=== PATIENT | male | born 1940 | race Caucasian/White ===

== ENCOUNTER 2018-05-31 11:10 | Inpatient (IN) | payer MEDICARE, BC ==
[~2018-05-31] VITALS: Ht 175.3 cm; Wt 77.8 kg
[2018-05-31 11:40] LABS: BASOPHILS % (AUTO) 0.3 % (0-1); EOSINOPHILS % (AUTO) 0.2 % (0-6); HEMATOCRIT 50.7 % (42.0-52.0); HEMOGLOBIN 17.3 g/dl (14.0-17.9); LYMPHOCYTES # (AUTO) 0.9 X10'3 (1.1-4.8); LYMPHOCYTES % (AUTO) 8.9 % (21-51); MEAN CORPUSCULAR HEMOGLOBIN 29.4 PG (27.0-31.0); MEAN CORPUSCULAR HGB CONC 34.1 % (33.0-36.5); MEAN CORPUSCULAR VOLUME 86.4 FL (78-98); MEAN PLATELET VOLUME 8.2 FL (7.4-10.4); MONOCYTES # (AUTO) 0.8 X10'3 (0-0.9); MONOCYTES % (AUTO) 8.7 % (2-12); NEUTROPHILS # (AUTO) 7.9 X10'3 (1.8-7.7); NEUTROPHILS % (AUTO) 81.9 % (42-75); PLATELET COUNT 170 X10'3 (140-440); RED BLOOD COUNT 5.87 X10'6 (4.70-6.10); RED CELL DISTRIBUTION WIDTH 13.9 % (11.5-14.5); WHITE BLOOD COUNT 9.6 X10'3 (4.5-11.0)
[2018-05-31 11:52] LABS: PROTHROMBIN TIME 10.6 SECONDS (9.0-12.0)
[2018-05-31 11:53] LABS: PARTIAL THROMBOPLASTIN TIME 31 SECONDS (22-32)
[2018-05-31 11:55] LABS: ALANINE AMINOTRANSFERASE 17 U/L (12-78); ALBUMIN 3.7 G/DL (3.4-5.0); ALBUMIN/GLOBULIN RATIO 0.9 (1.1-1.5); ALKALINE PHOSPHATASE 109 IU/L (46-116); ANION GAP 12 (8-16); ASPARTATE AMINO TRANSFERASE 13 U/L (10-37); BLOOD UREA NITROGEN 17 MG/DL (7-18); BUN/CREATININE RATIO 16.8 (5.4-32.0); CALCIUM 8.7 MG/DL (8.5-10.1); CHLORIDE 102 MMOL/L (99-107); CREATININE 1.01 MG/DL (0.60-1.10); GLUCOSE 106 MG/DL (70-104); POTASSIUM 3.6 MMOL/L (3.5-5.1); SODIUM 138 MMOL/L (135-145); TOTAL CARBON DIOXIDE 24.1 MMOL/L (24-32); TOTAL PROTEIN 7.8 G/DL (6.4-8.2); eGFR 71 ML/MIN
--- NOTE | 2018-05-31 12:29 | NUR ---
SOC CALLED FOR NEURO EVAL. CART IN ROOM
[2018-05-31 13:00] LABS: CLARITY,URINE SLIGHTLY CLOUDY (Clear); COLOR,URINE YELLOW (Yellow); GLUCOSE, URINE NEGATIVE (Neg); KETONES,URINE TRACE mg/dl (Neg); LEUKOCYTE ESTERASE ,URINE NEGATIVE (Neg); NITRITES, URINE NEGATIVE (Neg); OCCULT BLOOD,URINE LARGE (Neg); PROTEIN,URINE 30 mg/dl (Neg); UROBILINOGEN,URINE 0.2 E.U/dL (0.2-1.0)
[2018-05-31 13:01] LABS: UA COLLECTION TYPE VOIDED
--- NOTE | 2018-05-31 13:05 | NUR ---
ASSISTED SOC MD WITH NEURO ASSESSMENT AND EVAL
[2018-05-31 13:08] LABS: MUCUS STRANDS MODERATE /LPF (Neg); SQUAMOUS EPITHELIAL CELL,UR MODERATE /LPF (FEW)
[2018-05-31 13:16] LABS: CAL OXALATE CRYSTALS 4+ /HPF (NEGATIVE)
[2018-05-31 13:19] LABS: AMORPHOUS URATES 1+; BACTERIA,URINE FEW /HPF (Neg)
[2018-05-31] MEDS ORDERED: aspirin 325mg tablet PO ONE (13:20)
[2018-05-31] MEDS ORDERED: CefTRIAXone/D5W-Rocephin 1gm 50 ML IV ONE (14:00)
[2018-05-31] MEDS ORDERED: LOVA40TA2 PO (14:43)
[2018-05-31] MEDS ORDERED: SERT100T10 PO (14:43)
[2018-05-31] MEDS ORDERED: ONDA4TAB6 PO (14:43)
[2018-05-31] MEDS ORDERED: normal saline 1000ml 1,000 ML IV SCH ×2 (15:29→15:34)
[2018-05-31] MEDS ORDERED: HYDROcodone/acetaminophen 5mg/325mg tablet PO PRN ×2 (15:30→15:35)
[2018-05-31] MEDS ORDERED: magnesium hydroxide 30ml (MOM) UD suspension PO PRN ×2 (15:30→15:35)
[2018-05-31] MEDS ORDERED: acetaminophen 325mg tablet PO PRN ×4 (15:30→15:35)
[2018-05-31] MEDS ORDERED: ondansetron/PF 4mg/2ml inj IV PRN ×2 (15:30→15:35)
[2018-05-31] MEDS ORDERED: mag hydrox/Alum hydrox/simeth 30ml oral suspension PO PRN ×2 (15:30→15:35)
[2018-05-31] MEDS ORDERED: morphine 4 MG/ML inj SYRINge IV PRN (15:35)
[2018-05-31] MEDS ORDERED: magnesium 2GM in 50ml NS 50 ML IV PRN (15:35)
[2018-05-31] MEDS ORDERED: magnesium 4gm in 100ml NS 100 ML IV PRN (15:35)
[2018-05-31] MEDS ORDERED: potassium Cl 40MEQ/NS 500ml 500 ML IV PRN ×2 (15:35)
[2018-05-31] MEDS ORDERED: magnesium Cl slow-release 64mg tablet PO PRN (15:35)
[2018-05-31] MEDS ORDERED: potassium Cl 20 mEq SR tablet PO PRN ×2 (15:35)
[2018-05-31] MEDS ORDERED: lisinopril 10 MG tablet PO SCH (15:40)
--- NOTE | 2018-05-31 16:14 | NUR ---
CALLED TO GIVE REPORT RN JUST WENT IN TO A ROOM AND WILL CALL BACK SHORTLY
[2018-05-31 18:00] VITALS: BP 154/74
--- NOTE | 2018-05-31 18:16 | NUR ---
PAGER ID: [phone] MESSAGE: Jessica Melgar in [id number]- MRI looks inconclusive, states infarct present on rt but also states diffusion images neg for stroke. There are no parameters to give lisinopril (permissive htn x 24 hrs?) pls call me thank you Addendum: 05/31/18 at 1824 by Jazmín Torre RN per MD mooney to hold lisinopril at this time
--- NOTE | 2018-05-31 18:40 | NUR ---
PATIENT REPORT RECEIVED FROM CECY SCHWARTZ.
[2018-05-31] MEDS: heparin, porcine 5000 units/ml vial SQ SCH (19:14)
[2018-05-31 20:00] VITALS: BP_SYST 125; BP_SYST 145; BP_SYST 152; BP_DIAS 77; BP_DIAS 84; BP_DIAS 85
[2018-05-31 20:44] VITALS: BP 154/74
[2018-05-31] MEDS ORDERED: temazepam 15mg capsule PO PRN (21:00)
[2018-05-31 22:00] VITALS: BP 131/74
[2018-06-01] MEDS: heparin, porcine 5000 units/ml vial SQ SCH ×2 (01:35→10:25)
[2018-06-01 02:00] VITALS: BP 125/77
[2018-06-01 06:00] VITALS: BP 132/68
--- NOTE | 2018-06-01 06:36 | NUR ---
PATIENT REPORT GIVEN TO CECY SCHWARTZ.
[2018-06-01 07:15] LABS: BASOPHILS % (AUTO) 0.2 % (0-1); EOSINOPHILS # (AUTO) 0.1 X10'3 (0-0.9); EOSINOPHILS % (AUTO) 1.6 % (0-6); HEMATOCRIT 48.1 % (42.0-52.0); HEMOGLOBIN 16.8 g/dl (14.0-17.9); LYMPHOCYTES % (AUTO) 10.8 % (21-51); MEAN CORPUSCULAR HEMOGLOBIN 29.7 PG (27.0-31.0); MEAN CORPUSCULAR HGB CONC 34.9 % (33.0-36.5); MEAN CORPUSCULAR VOLUME 85.1 FL (78-98); MEAN PLATELET VOLUME 8.5 FL (7.4-10.4); MONOCYTES % (AUTO) 11.3 % (2-12); NEUTROPHILS % (AUTO) 76.1 % (42-75); PLATELET COUNT 164 X10'3 (140-440); RED BLOOD COUNT 5.65 X10'6 (4.70-6.10); RED CELL DISTRIBUTION WIDTH 13.9 % (11.5-14.5); WHITE BLOOD COUNT 9.1 X10'3 (4.5-11.0)
[2018-06-01 07:35] LABS: ALBUMIN 3.2 G/DL (3.4-5.0); ANION GAP 14 (8-16); BLOOD UREA NITROGEN 15 MG/DL (7-18); BUN/CREATININE RATIO 15.5 (5.4-32.0); CALCIUM 8.6 MG/DL (8.5-10.1); CHLORIDE 102 MMOL/L (99-107); CHOL/HDL RATIO 4.1 (0.00-4.99); CHOLESTEROL 156 MG/DL (0-200); CREATININE 0.97 MG/DL (0.60-1.10); GLUCOSE 103 MG/DL (70-104); HDL CHOLESTEROL 38 MG/DL (35-60); LDL CHOLESTEROL 108 MG/DL (50-100); MAGNESIUM 1.7 MG/DL (1.5-2.4); POTASSIUM 3.5 MMOL/L (3.5-5.1); SODIUM 140 MMOL/L (135-145); TOTAL CARBON DIOXIDE 23.6 MMOL/L (24-32); TRIGLYCERIDES 94 MG/DL (20-135); eGFR 75 ML/MIN
[2018-06-01] MEDS ORDERED: atorvastatin 10mg tablet PO SCH (08:00)
[2018-06-01] MEDS ORDERED: lisinopril 10 MG tablet PO SCH (08:00)
[2018-06-01] MEDS ORDERED: sertraline 50mg tablet PO SCH (08:00)
[2018-06-01] MEDS ORDERED: K and/or MAG REPLACEMENT MC SCH (08:00)
[2018-06-01] MEDS ORDERED: CefTRIAXone/D5W-Rocephin 1gm 50 ML IV SCH (08:35)
[2018-06-01] MEDS ORDERED: carVEDilol 3.125mg tablet PO SCH (08:35)
[2018-06-01 10:00] VITALS: BP_SYST 132; BP_SYST 141; BP_SYST 145; BP_DIAS 66; BP_DIAS 68; BP_DIAS 76
--- NOTE | 2018-06-01 13:18 | NUR ---
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 Discussed with Yadira the stroke RN and she agrees
--- NOTE | 2018-06-01 14:25 | NUR ---
PAGER ID: [phone] MESSAGE: Jessica [phone] re Mr Wade escudero in [id number]- His workup looks negative, family at bedside wondering about dc. Thank you
[2018-06-01] MEDS ORDERED: COR3.125T PO (14:46)
[2018-06-01] MEDS ORDERED: CIPR-230 PO (14:46)
--- NOTE | 2018-06-01 15:32 | NUR ---
PAGER ID: [phone] MESSAGE: Jessica [phone] re Wade Melgar in 3419w- Does he need home rx for asa? because of the prior stroke?
[2018-06-01] MEDS ORDERED: ASPI-1264 PO (16:23)
--- NOTE | 2018-06-01 16:31 | NUR ---
rx called in to [facility] [address]
[2018-06-01] MEDS ORDERED: lactobacillus rhamnosus 10,000 MMU CELLS/CAPSULE PO SCH (20:00)
== END 2018-06-01 17:00 | disposition home or self-care (01) | DRG 640 ==
LOC: ER 11:11 → ED HOLD 15:29 → ORTHO 4S 17:26
PROVIDERS: ADMIT Internal Medicine; ATTEND Internal Medicine
DX: E86.0 Dehydration (principal); G93.41 Metabolic encephalopathy; N39.0 Urinary tract infection, site not specified; E78.00 Pure hypercholesterolemia, unspecified; R79.89 Other specified abnormal findings of blood chemistry; E78.5 Hyperlipidemia, unspecified; F32.9 Major depressive disorder, single episode, unspecified; I10 Essential (primary) hypertension; Z79.899 Other long term (current) drug therapy
CPT/HCPCS: 36415; 70450; 70551; 71045; 80048; 80053; 80061; 81001; 83735; 84484; 85025; 85610; 85730; 87070; 87088; 93005; 93306; 93880; 96365; 97116; 97162; 97530; 99285; G0378; J0696; J1644

== ENCOUNTER 2019-05-21 08:48 | Emergency (ER) | payer MEDICARE, BC ==
[~2019-05-21] VITALS: Ht 170.2 cm; Wt 84.0 kg
[~2019-05-21 08:48] MED LIST: ASPI-1264 PO; COR3.125T PO; LOVA40TA2 PO; ONDA4TAB6 PO; SERT100T10 PO
--- NOTE | 2019-05-21 09:10 | NUR ---
[facility] card given to me by EMS for transport home when needed. Patient is in rm 205, Contact Bjorn Grijalva at [phone].
[2019-05-21 09:46] LABS: BASOPHILS # (AUTO) 0.1 X10'3 (0-0.2); BASOPHILS % (AUTO) 0.6 % (0-1); EOSINOPHILS # (AUTO) 0.3 X10'3 (0-0.9); EOSINOPHILS % (AUTO) 2.9 % (0-6); HEMOGLOBIN 16.6 g/dl (14.0-17.9); LYMPHOCYTES # (AUTO) 1.3 X10'3 (1.1-4.8); LYMPHOCYTES % (AUTO) 14.8 % (21-51); MEAN CORPUSCULAR HEMOGLOBIN 28.4 PG (27.0-31.0); MEAN CORPUSCULAR HGB CONC 33.8 g/dL (33.0-36.5); MEAN PLATELET VOLUME 8.6 FL (7.4-10.4); MONOCYTES # (AUTO) 0.9 X10'3 (0-0.9); MONOCYTES % (AUTO) 9.9 % (2-12); NEUTROPHILS # (AUTO) 6.5 X10'3 (1.8-7.7); NEUTROPHILS % (AUTO) 71.8 % (42-75); PLATELET COUNT 200 X10'3 (140-440); RED BLOOD COUNT 5.84 X10'6 (4.70-6.10); RED CELL DISTRIBUTION WIDTH 14.8 % (11.5-14.5); WHITE BLOOD COUNT 9.1 X10'3 (4.5-11.0)
[2019-05-21 09:54] LABS: CLARITY,URINE SLIGHTLY CLOUDY (Clear); COLOR,URINE YELLOW (Yellow); GLUCOSE, URINE NEGATIVE (Neg); KETONES,URINE NEGATIVE (Neg); LEUKOCYTE ESTERASE ,URINE NEGATIVE (Neg); NITRITES, URINE NEGATIVE (Neg); OCCULT BLOOD,URINE TRACE-INTACT (Neg); PROTEIN,URINE 30 mg/dl (Neg); UROBILINOGEN,URINE 0.2 E.U/dL (0.2-1.0)
[2019-05-21 09:57] LABS: UA COLLECTION TYPE URINAL
[2019-05-21 10:00] LABS: PARTIAL THROMBOPLASTIN TIME 28 SECONDS (22-32)
[2019-05-21 10:02] LABS: CAL OXALATE CRYSTALS 2+ /HPF (NEGATIVE); MUCUS STRANDS FEW /LPF (Neg); SQUAMOUS EPITHELIAL CELL,UR FEW /LPF (FEW)
[2019-05-21 10:03] LABS: ALANINE AMINOTRANSFERASE 29 U/L (12-78); ALBUMIN 3.6 G/DL (3.4-5.0); ALBUMIN/GLOBULIN RATIO 0.8 (1.1-1.5); ALKALINE PHOSPHATASE 127 IU/L (46-116); ANION GAP 5 (8-16); ASPARTATE AMINO TRANSFERASE 22 U/L (10-37); BILIRUBIN,TOTAL 0.6 MG/DL (0.1-1.0); BLOOD UREA NITROGEN 18 MG/DL (7-18); BUN/CREATININE RATIO 19.1 (5.4-32.0); CHLORIDE 107 MMOL/L (99-107); CREATININE 0.94 MG/DL (0.60-1.10); GLUCOSE 96 MG/DL (70-104); POTASSIUM 3.6 MMOL/L (3.5-5.1); SODIUM 143 MMOL/L (135-145); TOTAL CARBON DIOXIDE 30.6 MMOL/L (24-32); TOTAL PROTEIN 7.9 G/DL (6.4-8.2); eGFR 77 ML/MIN
[2019-05-21 10:03] LABS: BACTERIA,URINE 1+ /HPF (Neg); RBC,URINE 0-2 /HPF (0-2); WBC,URINE 0-4 /HPF (0-4)
[2019-05-21 10:11] LABS: MAGNESIUM 2.2 MG/DL (1.5-2.4); TROPONIN I < 0.04 NG/ML (0.0-0.05)
[2019-05-21] MEDS ORDERED: CEPH500C5 PO (10:29)
--- NOTE | 2019-05-21 10:35 | NUR ---
CALL MADE TO [facility] [phone] THEY WILL CALL FAMILY TO COME SUPERVISOR SEWING DEPARTMENT PT.
[2019-05-21 11:11] VITALS: BP 157/73
== END 2019-05-21 11:14 | disposition home or self-care (01) ==
LOC: ER 08:49
DX: L03.116 Cellulitis of left lower limb (principal); L03.115 Cellulitis of right lower limb; F03.90 Unspecified dementia, unspecified severity, without behavioral disturbance, psychotic disturbance, mood disturbance, and anxiety; R79.1 Abnormal coagulation profile; E78.00 Pure hypercholesterolemia, unspecified; Z79.82 Long term (current) use of aspirin; Z79.899 Other long term (current) drug therapy
CPT/HCPCS: 36415; 71045; 80053; 81001; 83605; 83735; 83880; 84145; 84484; 85025; 85610; 85730; 87040; 93005; 99284

== ENCOUNTER 2019-09-05 11:26 | Emergency (ER) | payer MEDICARE, BC ==
[~2019-09-05] VITALS: Ht 177.8 cm; Wt 104.5 kg
[~2019-09-05 11:26] MED LIST changes: +CEPH500C5 PO
[2019-09-05 12:08] LABS: BASOPHILS # (AUTO) 0.1 X10'3 (0-0.2); BASOPHILS % (AUTO) 0.7 % (0-1); EOSINOPHILS # (AUTO) 0.4 X10'3 (0-0.9); HEMOGLOBIN 14.7 g/dl (14.0-17.9); LYMPHOCYTES # (AUTO) 1.2 X10'3 (1.1-4.8); LYMPHOCYTES % (AUTO) 9.4 % (21-51); MEAN CORPUSCULAR HGB CONC 32.6 g/dL (33.0-36.5); MEAN CORPUSCULAR VOLUME 82.9 FL (78-98); MONOCYTES # (AUTO) 1.2 X10'3 (0-0.9); MONOCYTES % (AUTO) 9.4 % (2-12); NEUTROPHILS # (AUTO) 9.8 X10'3 (1.8-7.7); NEUTROPHILS % (AUTO) 77.5 % (42-75); PLATELET COUNT 270 X10'3 (140-440); RED BLOOD COUNT 5.43 X10'6 (4.70-6.10); RED CELL DISTRIBUTION WIDTH 16.1 % (11.5-14.5); WHITE BLOOD COUNT 12.7 X10'3 (4.5-11.0)
[2019-09-05 12:26] LABS: ALANINE AMINOTRANSFERASE 18 U/L (12-78); ALBUMIN/GLOBULIN RATIO 0.6 (1.1-1.5); ALKALINE PHOSPHATASE 127 IU/L (46-116); ANION GAP 5 (8-16); ASPARTATE AMINO TRANSFERASE 20 U/L (10-37); BILIRUBIN,TOTAL 0.2 MG/DL (0.1-1.0); BLOOD UREA NITROGEN 12 MG/DL (7-18); BUN/CREATININE RATIO 9.4 (5.4-32.0); CALCIUM 8.9 MG/DL (8.5-10.1); CHLORIDE 104 MMOL/L (99-107); CREATININE 1.27 MG/DL (0.60-1.10); GLUCOSE 106 MG/DL (70-104); POTASSIUM 4.4 MMOL/L (3.5-5.1); SODIUM 140 MMOL/L (135-145); TOTAL CARBON DIOXIDE 31.1 MMOL/L (24-32); TOTAL PROTEIN 7.8 G/DL (6.4-8.2); eGFR 55 ML/MIN
--- NOTE | 2019-09-05 13:51 | NUR ---
pt sleeping in no distress.
--- NOTE | 2019-09-05 15:52 | NUR ---
patients POA named Jorge is going to pick this patient up and take him back to the facility he came from. Patient awaiting ride and has discharge orders.
--- NOTE | 2019-09-05 15:55 | NUR ---
Jorge called back and said that Rosi the caregiver would be picking the patient up in about 15 minutes
[2019-09-05 16:27] VITALS: BP 142/61
== END 2019-09-05 16:25 | disposition home or self-care (01) ==
LOC: ER 11:26
DX: R07.9 Chest pain, unspecified (principal); R06.02 Shortness of breath; E78.00 Pure hypercholesterolemia, unspecified; Z79.82 Long term (current) use of aspirin; Z79.2 Long term (current) use of antibiotics; Z79.899 Other long term (current) drug therapy
CPT/HCPCS: 36415; 71045; 80053; 84484; 85025; 93005; 99285

== ENCOUNTER 2019-10-23 10:55 | Outpatient (CLI) | payer MEDICARE, BC ==
[2019-10-23 13:02] LABS: BASOPHILS % (AUTO) 0.3 % (0-1); EOSINOPHILS # (AUTO) 0.4 X10'3 (0-0.9); EOSINOPHILS % (AUTO) 2.7 % (0-6); HEMATOCRIT 42.7 % (42.0-52.0); LYMPHOCYTES % (AUTO) 7.6 % (21-51); MEAN CORPUSCULAR HEMOGLOBIN 26.9 PG (27.0-31.0); MEAN CORPUSCULAR HGB CONC 32.8 g/dL (33.0-36.5); MEAN CORPUSCULAR VOLUME 82.1 FL (78-98); MEAN PLATELET VOLUME 8.2 FL (7.4-10.4); MONOCYTES # (AUTO) 1.2 X10'3 (0-0.9); MONOCYTES % (AUTO) 9.3 % (2-12); NEUTROPHILS # (AUTO) 10.3 X10'3 (1.8-7.7); NEUTROPHILS % (AUTO) 80.1 % (42-75); PLATELET COUNT 289 X10'3 (140-440); RED CELL DISTRIBUTION WIDTH 15.6 % (11.5-14.5); WHITE BLOOD COUNT 12.9 X10'3 (4.5-11.0)
[2019-10-23 13:25] LABS: HEMOGLOBIN A1C 5.9 % (4.5-6.2)
[2019-10-23 14:05] LABS: ALANINE AMINOTRANSFERASE 19 U/L (12-78); ALBUMIN/GLOBULIN RATIO 0.6 (1.1-1.5); ALKALINE PHOSPHATASE 121 IU/L (46-116); ANION GAP 7 (8-16); ASPARTATE AMINO TRANSFERASE 20 U/L (10-37); BILIRUBIN,TOTAL 0.3 MG/DL (0.1-1.0); BLOOD UREA NITROGEN 12 MG/DL (7-18); BUN/CREATININE RATIO 10.9 (5.4-32.0); CALCIUM 9.2 MG/DL (8.5-10.1); CHLORIDE 104 MMOL/L (99-107); GLUCOSE 91 MG/DL (70-104); POTASSIUM 4.2 MMOL/L (3.5-5.1); SODIUM 140 MMOL/L (135-145); TOTAL CARBON DIOXIDE 28.9 MMOL/L (24-32); TOTAL PROTEIN 8.2 G/DL (6.4-8.2); eGFR 64 ML/MIN
== END 2019-10-23 13:30 | disposition home or self-care (01) ==
LOC: WOUND CARE 10:55 → EDSTATUS 11:00 → WOUND CARE 13:30
PROVIDERS: ATTEND Nurse Practitioner
DX: I83.011 Varicose veins of right lower extremity with ulcer of thigh (principal); I83.012 Varicose veins of right lower extremity with ulcer of calf; L97.111 Non-pressure chronic ulcer of right thigh limited to breakdown of skin; L97.211 Non-pressure chronic ulcer of right calf limited to breakdown of skin; I83.018 Varicose veins of right lower extremity with ulcer other part of lower leg; L97.811 Non-pressure chronic ulcer of other part of right lower leg limited to breakdown of skin; L97.821 Non-pressure chronic ulcer of other part of left lower leg limited to breakdown of skin; I83.028 Varicose veins of left lower extremity with ulcer other part of lower leg; I10 Essential (primary) hypertension; F03.90 Unspecified dementia, unspecified severity, without behavioral disturbance, psychotic disturbance, mood disturbance, and anxiety; Z79.2 Long term (current) use of antibiotics; Z79.899 Other long term (current) drug therapy; Z79.82 Long term (current) use of aspirin; E78.00 Pure hypercholesterolemia, unspecified; Z90.49 Acquired absence of other specified parts of digestive tract
CPT/HCPCS: 29580; 36415; 80053; 83036; 85025; 85651; 86140

== ENCOUNTER 2019-10-30 11:40 | Outpatient (CLI) | payer MEDICARE, BC | END 2019-10-30 14:24 | disposition home or self-care (01) | LOC: EDSTATUS 11:40 → WOUND CARE 11:40 | PROVIDERS: ATTEND Nurse Practitioner | DX: I83.012 Varicose veins of right lower extremity with ulcer of calf (principal); L97.211 Non-pressure chronic ulcer of right calf limited to breakdown of skin; L97.821 Non-pressure chronic ulcer of other part of left lower leg limited to breakdown of skin; L97.811 Non-pressure chronic ulcer of other part of right lower leg limited to breakdown of skin; I83.011 Varicose veins of right lower extremity with ulcer of thigh; L97.111 Non-pressure chronic ulcer of right thigh limited to breakdown of skin; I10 Essential (primary) hypertension; E78.00 Pure hypercholesterolemia, unspecified; F03.90 Unspecified dementia, unspecified severity, without behavioral disturbance, psychotic disturbance, mood disturbance, and anxiety; Z79.2 Long term (current) use of antibiotics; Z79.899 Other long term (current) drug therapy; Z79.82 Long term (current) use of aspirin; Z90.49 Acquired absence of other specified parts of digestive tract | CPT/HCPCS: 29581; 93922; 93925 ==

== ENCOUNTER 2019-11-05 10:40 | Outpatient (CLI) | payer MEDICARE, BC | END 2019-11-05 12:01 | disposition home or self-care (01) | LOC: WOUND CARE 10:40 → EDSTATUS 10:40 → WOUND CARE 12:01 | PROVIDERS: ATTEND Nurse Practitioner | DX: I83.012 Varicose veins of right lower extremity with ulcer of calf (principal); L97.211 Non-pressure chronic ulcer of right calf limited to breakdown of skin; L97.821 Non-pressure chronic ulcer of other part of left lower leg limited to breakdown of skin; L97.811 Non-pressure chronic ulcer of other part of right lower leg limited to breakdown of skin; I83.011 Varicose veins of right lower extremity with ulcer of thigh; L97.111 Non-pressure chronic ulcer of right thigh limited to breakdown of skin; I10 Essential (primary) hypertension; E78.00 Pure hypercholesterolemia, unspecified; F03.90 Unspecified dementia, unspecified severity, without behavioral disturbance, psychotic disturbance, mood disturbance, and anxiety; Z79.2 Long term (current) use of antibiotics; Z79.899 Other long term (current) drug therapy; Z79.82 Long term (current) use of aspirin; Z90.49 Acquired absence of other specified parts of digestive tract | CPT/HCPCS: G0463 ==

== ENCOUNTER 2019-11-11 10:14 | Outpatient (CLI) | payer MEDICARE, BC | END 2019-11-11 12:57 | disposition home or self-care (01) | LOC: WOUND CARE 10:14 → EDSTATUS 10:20 → WOUND CARE 12:57 | PROVIDERS: ATTEND Nurse Practitioner | DX: I83.012 Varicose veins of right lower extremity with ulcer of calf (principal); L97.211 Non-pressure chronic ulcer of right calf limited to breakdown of skin; L97.811 Non-pressure chronic ulcer of other part of right lower leg limited to breakdown of skin; L97.821 Non-pressure chronic ulcer of other part of left lower leg limited to breakdown of skin; I87.8 Other specified disorders of veins; I83.011 Varicose veins of right lower extremity with ulcer of thigh; L97.111 Non-pressure chronic ulcer of right thigh limited to breakdown of skin; I10 Essential (primary) hypertension; E78.00 Pure hypercholesterolemia, unspecified; F03.90 Unspecified dementia, unspecified severity, without behavioral disturbance, psychotic disturbance, mood disturbance, and anxiety; Z79.2 Long term (current) use of antibiotics; Z79.899 Other long term (current) drug therapy; Z79.82 Long term (current) use of aspirin; Z90.49 Acquired absence of other specified parts of digestive tract | CPT/HCPCS: 29580 ==

== ENCOUNTER 2019-11-18 10:17 | Outpatient (CLI) | payer MEDICARE, BC | END 2019-11-18 11:36 | disposition home or self-care (01) | LOC: WOUND CARE 10:17 → EDSTATUS 10:20 → WOUND CARE 11:36 | PROVIDERS: ATTEND Nurse Practitioner | DX: I83.012 Varicose veins of right lower extremity with ulcer of calf (principal); L97.211 Non-pressure chronic ulcer of right calf limited to breakdown of skin; I83.018 Varicose veins of right lower extremity with ulcer other part of lower leg; L97.811 Non-pressure chronic ulcer of other part of right lower leg limited to breakdown of skin; I83.028 Varicose veins of left lower extremity with ulcer other part of lower leg; L97.821 Non-pressure chronic ulcer of other part of left lower leg limited to breakdown of skin; I87.8 Other specified disorders of veins; I83.011 Varicose veins of right lower extremity with ulcer of thigh; L97.111 Non-pressure chronic ulcer of right thigh limited to breakdown of skin; I10 Essential (primary) hypertension; E78.00 Pure hypercholesterolemia, unspecified; F03.90 Unspecified dementia, unspecified severity, without behavioral disturbance, psychotic disturbance, mood disturbance, and anxiety; Z79.2 Long term (current) use of antibiotics; Z79.899 Other long term (current) drug therapy; Z79.82 Long term (current) use of aspirin; Z90.49 Acquired absence of other specified parts of digestive tract | CPT/HCPCS: 29581 ==

== ENCOUNTER 2019-12-02 10:12 | Outpatient (CLI) | payer MEDICARE, BC | END 2019-12-02 11:10 | disposition home or self-care (01) | LOC: WOUND CARE 10:12 → EDSTATUS 10:20 → WOUND CARE 11:10 | PROVIDERS: ATTEND Nurse Practitioner | DX: I83.012 Varicose veins of right lower extremity with ulcer of calf (principal); L97.211 Non-pressure chronic ulcer of right calf limited to breakdown of skin; I83.018 Varicose veins of right lower extremity with ulcer other part of lower leg; L97.811 Non-pressure chronic ulcer of other part of right lower leg limited to breakdown of skin; I83.028 Varicose veins of left lower extremity with ulcer other part of lower leg; L97.821 Non-pressure chronic ulcer of other part of left lower leg limited to breakdown of skin; I87.8 Other specified disorders of veins; I83.011 Varicose veins of right lower extremity with ulcer of thigh; L97.111 Non-pressure chronic ulcer of right thigh limited to breakdown of skin; I83.015 Varicose veins of right lower extremity with ulcer other part of foot; L89.899 Pressure ulcer of other site, unspecified stage; L97.511 Non-pressure chronic ulcer of other part of right foot limited to breakdown of skin; I10 Essential (primary) hypertension; E78.00 Pure hypercholesterolemia, unspecified; F03.90 Unspecified dementia, unspecified severity, without behavioral disturbance, psychotic disturbance, mood disturbance, and anxiety; Z79.2 Long term (current) use of antibiotics; Z79.899 Other long term (current) drug therapy; Z79.82 Long term (current) use of aspirin; Z90.49 Acquired absence of other specified parts of digestive tract | CPT/HCPCS: 29581 ==

== ENCOUNTER 2020-01-02 10:28 | Outpatient (CLI) | payer MEDICARE, BC | END 2020-01-02 11:55 | disposition home or self-care (01) | LOC: WOUND CARE 10:28 | PROVIDERS: ATTEND Nurse Practitioner | DX: I83.018 Varicose veins of right lower extremity with ulcer other part of lower leg (principal); L97.811 Non-pressure chronic ulcer of other part of right lower leg limited to breakdown of skin; I83.028 Varicose veins of left lower extremity with ulcer other part of lower leg; L97.821 Non-pressure chronic ulcer of other part of left lower leg limited to breakdown of skin; I83.012 Varicose veins of right lower extremity with ulcer of calf; L97.211 Non-pressure chronic ulcer of right calf limited to breakdown of skin; I87.8 Other specified disorders of veins; I83.011 Varicose veins of right lower extremity with ulcer of thigh; L97.111 Non-pressure chronic ulcer of right thigh limited to breakdown of skin; I10 Essential (primary) hypertension; E78.00 Pure hypercholesterolemia, unspecified; F03.90 Unspecified dementia, unspecified severity, without behavioral disturbance, psychotic disturbance, mood disturbance, and anxiety; Z79.2 Long term (current) use of antibiotics; Z79.899 Other long term (current) drug therapy; Z79.82 Long term (current) use of aspirin; Z90.49 Acquired absence of other specified parts of digestive tract; Z90.89 Acquired absence of other organs | CPT/HCPCS: 29580; 87070; 87075; 87077; 87102; 87186 ==

== ENCOUNTER 2020-01-09 10:25 | Outpatient (CLI) | payer MEDICARE, BC | END 2020-01-09 11:43 | disposition home or self-care (01) | LOC: WOUND CARE 10:25 | PROVIDERS: ATTEND Nurse Practitioner | DX: I83.018 Varicose veins of right lower extremity with ulcer other part of lower leg (principal); L97.811 Non-pressure chronic ulcer of other part of right lower leg limited to breakdown of skin; I83.028 Varicose veins of left lower extremity with ulcer other part of lower leg; L97.821 Non-pressure chronic ulcer of other part of left lower leg limited to breakdown of skin; I83.012 Varicose veins of right lower extremity with ulcer of calf; L97.211 Non-pressure chronic ulcer of right calf limited to breakdown of skin; I87.8 Other specified disorders of veins; I83.011 Varicose veins of right lower extremity with ulcer of thigh; L97.111 Non-pressure chronic ulcer of right thigh limited to breakdown of skin; I10 Essential (primary) hypertension; E78.00 Pure hypercholesterolemia, unspecified; F03.90 Unspecified dementia, unspecified severity, without behavioral disturbance, psychotic disturbance, mood disturbance, and anxiety; Z79.2 Long term (current) use of antibiotics; Z79.899 Other long term (current) drug therapy; Z79.82 Long term (current) use of aspirin; Z90.49 Acquired absence of other specified parts of digestive tract; Z90.89 Acquired absence of other organs | CPT/HCPCS: 29580 ==

== ENCOUNTER → 2020-01-16 | Day surgery (SDC) | payer MEDICARE, BC | END | disposition home or self-care (01) | LOC: WOUND CARE 10:30 | PROVIDERS: ATTEND Nurse Practitioner | DX: I83.018 Varicose veins of right lower extremity with ulcer other part of lower leg (principal); L97.211 Non-pressure chronic ulcer of right calf limited to breakdown of skin; I83.028 Varicose veins of left lower extremity with ulcer other part of lower leg; L97.821 Non-pressure chronic ulcer of other part of left lower leg limited to breakdown of skin; I83.012 Varicose veins of right lower extremity with ulcer of calf; L97.811 Non-pressure chronic ulcer of other part of right lower leg limited to breakdown of skin; I83.011 Varicose veins of right lower extremity with ulcer of thigh; L97.111 Non-pressure chronic ulcer of right thigh limited to breakdown of skin; I83.015 Varicose veins of right lower extremity with ulcer other part of foot; L89.899 Pressure ulcer of other site, unspecified stage; L97.511 Non-pressure chronic ulcer of other part of right foot limited to breakdown of skin; I10 Essential (primary) hypertension; E78.00 Pure hypercholesterolemia, unspecified; F03.90 Unspecified dementia, unspecified severity, without behavioral disturbance, psychotic disturbance, mood disturbance, and anxiety; Z79.2 Long term (current) use of antibiotics; Z79.899 Other long term (current) drug therapy; Z79.82 Long term (current) use of aspirin; Z90.49 Acquired absence of other specified parts of digestive tract | CPT/HCPCS: 29581 ==

== ENCOUNTER 2020-01-25 14:06 | Emergency (ER) | payer MEDICARE, BC ==
[2020-01-25 14:41] LABS: BASOPHILS # (AUTO) 0.3 X10'3 (0-0.2); BASOPHILS % (AUTO) 1.2 % (0-1); EOSINOPHILS % (AUTO) 0.1 % (0-6); HEMATOCRIT 40.6 % (42.0-52.0); HEMOGLOBIN 13.5 g/dl (14.0-17.9); LYMPHOCYTES # (AUTO) 0.5 X10'3 (1.1-4.8); LYMPHOCYTES % (AUTO) 2.4 % (21-51); MEAN CORPUSCULAR HEMOGLOBIN 27.1 PG (27.0-31.0); MEAN CORPUSCULAR HGB CONC 33.2 g/dL (33.0-36.5); MEAN CORPUSCULAR VOLUME 81.7 FL (78-98); MONOCYTES # (AUTO) 1.7 X10'3 (0-0.9); MONOCYTES % (AUTO) 7.8 % (2-12); NEUTROPHILS # (AUTO) 18.9 X10'3 (1.8-7.7); NEUTROPHILS % (AUTO) 88.5 % (42-75); PLATELET COUNT 196 X10'3 (140-440); RED BLOOD COUNT 4.97 X10'6 (4.70-6.10); RED CELL DISTRIBUTION WIDTH 15.8 % (11.5-14.5); WHITE BLOOD COUNT 21.4 X10'3 (4.5-11.0)
--- NOTE | 2020-01-25 14:45 | NUR ---
PT IN CT
[2020-01-25 14:52] LABS: PARTIAL THROMBOPLASTIN TIME 31 SECONDS (22-32)
[2020-01-25 14:53] LABS: ALANINE AMINOTRANSFERASE 22 U/L (12-78); ALBUMIN 2.8 G/DL (3.4-5.0); ALBUMIN/GLOBULIN RATIO 0.6 (1.1-1.5); ALKALINE PHOSPHATASE 120 IU/L (46-116); ANION GAP 8 (8-16); ASPARTATE AMINO TRANSFERASE 22 U/L (10-37); BILIRUBIN,TOTAL 0.9 MG/DL (0.1-1.0); BLOOD UREA NITROGEN 20 MG/DL (7-18); BUN/CREATININE RATIO 18.3 (5.4-32.0); CALCIUM 8.5 MG/DL (8.5-10.1); CHLORIDE 99 MMOL/L (99-107); CREATININE 1.09 MG/DL (0.60-1.10); GLUCOSE 112 MG/DL (70-104); POTASSIUM 3.7 MMOL/L (3.5-5.1); SODIUM 132 MMOL/L (135-145); TOTAL CARBON DIOXIDE 25.4 MMOL/L (24-32); TOTAL PROTEIN 7.8 G/DL (6.4-8.2); eGFR 65 ML/MIN
--- NOTE | 2020-01-25 15:09 | NUR ---
TRAUMA CLEARED CT RESULTED. CLEARED [id number]
[2020-01-25 15:10] VITALS: BP 133/63
[2020-01-25 15:21] LABS: CLARITY,URINE CLOUDY (Clear); COLOR,URINE YELLOW (Yellow); GLUCOSE, URINE NEGATIVE (Neg); KETONES,URINE TRACE mg/dl (Neg); LEUKOCYTE ESTERASE ,URINE MODERATE (Neg); NITRITES, URINE POSITIVE (Neg); OCCULT BLOOD,URINE LARGE (Neg); PH,URINE 5.5 (4.8-8.0); PROTEIN,URINE 100 mg/dl (Neg)
[2020-01-25 15:28] LABS: UA COLLECTION TYPE STRAIGHT CATH
[2020-01-25 15:29] LABS: BACTERIA,URINE 2+ /HPF (Neg); MUCUS STRANDS FEW /LPF (Neg); SQUAMOUS EPITHELIAL CELL,UR NONE SEEN /LPF (FEW); WBC,URINE 50-100 /HPF (0-4)
[2020-01-25] MEDS ORDERED: CefTRIAXone/D5W-Rocephin 1gm 50 ML IV ONE (15:30)
[2020-01-25] MEDS ORDERED: CEPH500C5 PO (16:04)
== END 2020-01-25 16:28 | disposition home or self-care (01) ==
LOC: ER 14:06
DX: S09.90XA Unspecified injury of head, initial encounter (principal); N39.0 Urinary tract infection, site not specified; F03.90 Unspecified dementia, unspecified severity, without behavioral disturbance, psychotic disturbance, mood disturbance, and anxiety; E78.00 Pure hypercholesterolemia, unspecified; Z79.82 Long term (current) use of aspirin; Z79.899 Other long term (current) drug therapy; W19.XXXA Unspecified fall, initial encounter; Y93.89 Activity, other specified; Y92.89 Other specified places as the place of occurrence of the external cause; Y99.8 Other external cause status
CPT/HCPCS: 36415; 70450; 71045; 72125; 80053; 81001; 83605; 85025; 85610; 85730; 87040; 87077; 87088; 87186; 93005; 96365; 99285; J0696

== ENCOUNTER 2020-09-28 10:24 | Emergency (ER) | payer MEDICARE, BC ==
[~2020-09-28] VITALS: Ht 170.2 cm; Wt 76.8 kg
[~2020-09-28 10:24] MED LIST changes: +CEPH-585 PO; -CEPH500C5 PO; +SERT-434 PO; -SERT100T10 PO
[2020-09-28] MEDS ORDERED: normal saline 1000ML IV soln IVB ONE (10:40)
[2020-09-28 11:09] LABS: BASOPHILS # (AUTO) 0.1 X10'3 (0-0.2); BASOPHILS % (AUTO) 0.6 % (0-1); EOSINOPHILS # (AUTO) 0.3 X10'3 (0-0.9); EOSINOPHILS % (AUTO) 3.1 % (0-6); HEMOGLOBIN 12.2 g/dl (14.0-17.9); LYMPHOCYTES # (AUTO) 0.8 X10'3 (1.1-4.8); LYMPHOCYTES % (AUTO) 9.8 % (21-51); MEAN CORPUSCULAR HEMOGLOBIN 23.4 PG (27.0-31.0); MEAN CORPUSCULAR HGB CONC 32.2 g/dL (33.0-36.5); MEAN CORPUSCULAR VOLUME 72.9 FL (78-98); MEAN PLATELET VOLUME 7.8 FL (7.4-10.4); MONOCYTES # (AUTO) 0.9 X10'3 (0-0.9); MONOCYTES % (AUTO) 10.5 % (2-12); NEUTROPHILS # (AUTO) 6.6 X10'3 (1.8-7.7); PLATELET COUNT 251 X10'3 (140-440); RED BLOOD COUNT 5.22 X10'6 (4.70-6.10); RED CELL DISTRIBUTION WIDTH 16.9 % (11.5-14.5); WHITE BLOOD COUNT 8.6 X10'3 (4.5-11.0)
[2020-09-28 11:33] LABS: ALANINE AMINOTRANSFERASE 13 U/L (12-78); ALBUMIN 3.2 G/DL (3.4-5.0); ALBUMIN/GLOBULIN RATIO 0.8 (1.1-1.5); ALKALINE PHOSPHATASE 135 IU/L (46-116); ANION GAP 11 (8-16); ASPARTATE AMINO TRANSFERASE 15 U/L (10-37); BILIRUBIN,TOTAL 0.4 MG/DL (0.1-1.0); BLOOD UREA NITROGEN 18 MG/DL (7-18); BUN/CREATININE RATIO 18.8 (5.4-32.0); CALCIUM 8.8 MG/DL (8.5-10.1); CHLORIDE 106 MMOL/L (99-107); CREATININE 0.96 MG/DL (0.60-1.10); GLUCOSE 97 MG/DL (70-104); LIPASE 154 U/L (73-393); POTASSIUM 4.1 MMOL/L (3.5-5.1); SODIUM 143 MMOL/L (135-145); TOTAL CARBON DIOXIDE 25.9 MMOL/L (24-32); TOTAL PROTEIN 7.4 G/DL (6.4-8.2); eGFR 75 ML/MIN
[2020-09-28 13:34] LABS: CLARITY,URINE CLOUDY (Clear); COLOR,URINE STRAW (Yellow); GLUCOSE, URINE NEGATIVE (Neg); KETONES,URINE NEGATIVE (Neg); LEUKOCYTE ESTERASE ,URINE MODERATE (Neg); NITRITES, URINE POSITIVE (Neg); OCCULT BLOOD,URINE NEGATIVE (Neg); PROTEIN,URINE NEGATIVE (Neg); UROBILINOGEN,URINE 0.2 E.U/dL (0.2-1.0)
[2020-09-28 13:37] LABS: UA COLLECTION TYPE VOIDED
[2020-09-28 13:45] LABS: BACTERIA,URINE 2+ /HPF (Neg); SQUAMOUS EPITHELIAL CELL,UR FEW /LPF (FEW)
[2020-09-28 13:46] LABS: RBC,URINE 0-2 /HPF (0-2); WBC,URINE 50-100 /HPF (0-4)
[2020-09-28 14:00] VITALS: BP 108/54
[2020-09-28] MEDS ORDERED: CEPH-585 PO (14:14)
[2020-09-28] MEDS ORDERED: cephalexin 250mg capsule PO ONE (14:15)
--- NOTE | 2020-09-28 14:30 | NUR ---
Gave report to Jazmín at [facility] and reported plan of care, pt being tx for UTI and to be DC'd back to facility. [facility] to be called.
--- NOTE | 2020-09-28 14:44 | NUR ---
Jodie cargo to be here to take pt to [place] with ETA 30 min.
== END 2020-09-28 15:39 ==
LOC: ER 10:25
DX: N39.0 Urinary tract infection, site not specified (principal); F03.90 Unspecified dementia, unspecified severity, without behavioral disturbance, psychotic disturbance, mood disturbance, and anxiety; E78.00 Pure hypercholesterolemia, unspecified; I10 Essential (primary) hypertension; Z85.9 Personal history of malignant neoplasm, unspecified; Z79.82 Long term (current) use of aspirin; Z79.2 Long term (current) use of antibiotics; Z79.899 Other long term (current) drug therapy
CPT/HCPCS: 36415; 71045; 74176; 80053; 81001; 83690; 85025; 87088; 99285; J7030; 87077; 87186

== ENCOUNTER 2021-02-01 00:18 | Emergency (ER) | payer MEDICARE, BC ==
[~2021-02-01] VITALS: Ht 170.2 cm; Wt 77.2 kg
[~2021-02-01 00:18] MED LIST changes: -CEPH-585 PO
--- NOTE | 2021-02-01 01:00 | NUR ---
DOING BEDSIDE ASSESSMENT. MD CLEARED PT FOR DC. WILL CONTACT LIVING FACILITY FOR TRANSPORT.
--- NOTE | 2021-02-01 01:04 | NUR ---
CALLED [facility] ABOUT TRANSPORT FOR PT BACK TO [facility], WAS TOLD POWER OF CARDIAC CATH TECHNOLOGIST HAS NOT YET RESPONDED AND THEY ARE IN CHARGE OF PT TRANSPORT BACK TO FACILITY. THEY WILL CALL SOON THEY ARE ABLE TO CONTACT POA. NURSE WAS MADE AWARE OF CONVERSATION.
--- NOTE | 2021-02-01 01:45 | NUR ---
CALLED [facility] AND LEFT MESSAGE TO PLEASE CALL US BACK IN REGARDS TO TRANSPORT BACK TO [place]
--- NOTE | 2021-02-01 03:45 | NUR ---
CALLED [facility] FOR TRANSPORT ETA [phone]
[2021-02-01 05:22] VITALS: BP 137/63
== END 2021-02-01 05:37 | disposition home or self-care (01) ==
LOC: ER 00:20
DX: R07.89 Other chest pain (principal); F03.91 Unspecified dementia, unspecified severity, with behavioral disturbance; E78.00 Pure hypercholesterolemia, unspecified; I10 Essential (primary) hypertension; Z85.9 Personal history of malignant neoplasm, unspecified; Z79.82 Long term (current) use of aspirin; Z79.899 Other long term (current) drug therapy
CPT/HCPCS: 71045; 93005; 99283

== ENCOUNTER 2021-03-11 21:10 | Inpatient (IN) | payer MEDICARE, BC ==
[~2021-03-11] VITALS: Ht 180.3 cm; Wt 88.6 kg
[2021-03-11] MEDS ORDERED: CefTRIAXone 2gm/D5W 50ml BAG 50 ML IV ONE (21:30)
[2021-03-11] MEDS ORDERED: normal saline 1000ML IV soln IV ONE (21:30)
[2021-03-11 22:04] LABS: BASOPHILS % (AUTO) 0.1 % (0-1); EOSINOPHILS % (AUTO) 0 % (0-6); HEMATOCRIT 24.4 % (42.0-52.0); HEMOGLOBIN 7.5 g/dl (14.0-17.9); LYMPHOCYTES # (AUTO) 0.5 X10'3 (1.1-4.8); LYMPHOCYTES % (AUTO) 1.9 % (21-51); MEAN CORPUSCULAR HEMOGLOBIN 18.4 PG (27.0-31.0); MEAN CORPUSCULAR HGB CONC 30.6 g/dL (33.0-36.5); MEAN CORPUSCULAR VOLUME 60.2 FL (78-98); MEAN PLATELET VOLUME 8.2 FL (7.4-10.4); MONOCYTES # (AUTO) 1.7 X10'3 (0-0.9); MONOCYTES % (AUTO) 5.9 % (2-12); NEUTROPHILS # (AUTO) 26.6 X10'3 (1.8-7.7); NEUTROPHILS % (AUTO) 92.1 % (42-75); PLATELET COUNT 245 X10'3 (140-440); RED BLOOD COUNT 4.05 X10'6 (4.70-6.10); RED CELL DISTRIBUTION WIDTH 18.4 % (11.5-14.5)
[2021-03-11 22:12] LABS: WHITE BLOOD COUNT 28.9 X10'3 (4.5-11.0)
[2021-03-11 22:15] LABS: ALANINE AMINOTRANSFERASE 17 U/L (12-78); ALBUMIN 2.6 G/DL (3.4-5.0); ALBUMIN/GLOBULIN RATIO 0.7 (1.1-1.5); ALKALINE PHOSPHATASE 89 IU/L (46-116); ANION GAP 12 (8-16); ASPARTATE AMINO TRANSFERASE 24 U/L (10-37); BILIRUBIN,TOTAL 0.5 MG/DL (0.1-1.0); BLOOD UREA NITROGEN 33 MG/DL (7-18); BUN/CREATININE RATIO 12.9 (5.4-32.0); CALCIUM 7.9 MG/DL (8.5-10.1); CHLORIDE 102 MMOL/L (99-107); CREATININE 2.56 MG/DL (0.60-1.10); GLUCOSE 114 MG/DL (70-104); MAGNESIUM 1.8 MG/DL (1.5-2.4); POTASSIUM 4.3 MMOL/L (3.5-5.1); SODIUM 138 MMOL/L (135-145); TOTAL CARBON DIOXIDE 23.6 MMOL/L (24-32); TOTAL PROTEIN 6.6 G/DL (6.4-8.2); eGFR 24 ML/MIN
[2021-03-11 22:22] LABS: CLARITY,URINE CLOUDY (Clear); COLOR,URINE YELLOW (Yellow); GLUCOSE, URINE NEGATIVE (Neg); KETONES,URINE NEGATIVE (Neg); OCCULT BLOOD,URINE LARGE (Neg); PH,URINE 5.5 (4.8-8.0); PROTEIN,URINE 30 mg/dl (Neg); UA COLLECTION TYPE STRAIGHT CATH
[2021-03-11 22:23] LABS: LEUKOCYTE ESTERASE ,URINE MODERATE (Neg); NITRITES, URINE POSITIVE (Neg); UROBILINOGEN,URINE 0.2 E.U/dL (0.2-1.0)
[2021-03-11 22:37] LABS: CELLULAR CAST 0-4 /LPF (NEGATIVE); COARSE GRANULAR CAST 0-3 /LPF (NEGATIVE)
[2021-03-11 22:38] LABS: WBC,URINE TNTC /HPF (0-4)
[2021-03-11 22:40] LABS: BACTERIA,URINE 2+ /HPF (Neg)
[2021-03-11 22:41] LABS: MUCUS STRANDS NONE SEEN /LPF (Neg); SQUAMOUS EPITHELIAL CELL,UR FEW /LPF (FEW)
[2021-03-11 22:47] LABS: TOTAL CELLS COUNTED 100
[2021-03-11 22:49] LABS: PLATELET ESTIMATE NORMAL
[2021-03-11 22:50] LABS: ANISOCYTOSIS 2+; ELLIPTOCYTES 1+; HYPOCHROMASIA 1+; MICROCYTOSIS 2+; TEAR DROP CELLS FEW
[2021-03-12] MEDS ORDERED: POTASSIUM (01:05)
[2021-03-12] MEDS ORDERED: DONE10TA44 PO (01:05)
[2021-03-12] MEDS ORDERED: AMLO10TA13 PO (01:05)
[2021-03-12] MEDS ORDERED: CHLO25TA22 PO (01:05)
[2021-03-12] MEDS ORDERED: FURO20TA4 PO (01:05)
[2021-03-12] MEDS ORDERED: CLOP75TA34 PO (01:05)
[2021-03-12] MEDS ORDERED: PANT40TA54 PO (01:05)
[2021-03-12] MEDS ORDERED: ondansetron/PF 4mg/2ml inj IV PRN (02:45)
[2021-03-12] MEDS ORDERED: potassium Cl 40MEQ/1/2NS 520ml 520 ML IV PRN ×2 (02:45)
[2021-03-12] MEDS ORDERED: magnesium hydroxide 30ml (MOM) UD suspension PO PRN (02:45)
[2021-03-12] MEDS ORDERED: mag hydrox/Alum hydrox/simeth 30ml oral suspension PO PRN (02:45)
[2021-03-12] MEDS ORDERED: potassium Cl 20 mEq SR tablet PO PRN ×2 (02:45)
[2021-03-12] MEDS ORDERED: POTA8TAB58 PO (02:52)
[2021-03-12] MEDS: normal saline 1000ml 1,000 ML IV SCH ×3 (02:54→22:25)
[2021-03-12] MEDS ORDERED: pantoprazole 40mg Tablet.DR PO SCH (08:00)
[2021-03-12] MEDS: docusate sod 100mg capsule PO SCH ×2 (08:02→19:54)
[2021-03-12] MEDS: sertraline 50mg tablet PO SCH (08:02)
[2021-03-12] MEDS: CefTRIAXone/D5W-Rocephin 1gm 50 ML IV SCH (08:03)
[2021-03-12] MEDS: chlorproMAZINE 25mg tablet PO SCH ×3 (08:03→21:00)
[2021-03-12] MEDS: donepezil 5mg tablet PO SCH (08:03)
[2021-03-12] MEDS: K and/or MAG REPLACEMENT MC SCH ×2 (08:04→19:53)
[2021-03-12] MEDS ORDERED: LIDOcaine 2% 10ml TOPICAL JELLY (Urojet) TP ONE (08:15)
[2021-03-12] MEDS: azithromycin/NS 500mg/250ml 250 ML IV SCH (08:47)
[2021-03-12] MEDS ORDERED: pantoprazole 40 MG vial IV ONE (10:30)
[2021-03-12] MEDS ORDERED: pantoprazole 40MG/NS 100ML BAG 100 ML IV SCH (11:00)
--- NOTE | 2021-03-12 11:49 | NUR ---
Stool appears dark/tarry. Hemogram done at bedside by Dr. Rosas, negative results. Orders to DC IV protonix.
[2021-03-12 11:54] LABS: BASOPHILS # (AUTO) 0.1 X10'3 (0-0.2); BASOPHILS % (AUTO) 0.3 % (0-1); EOSINOPHILS % (AUTO) 0.1 % (0-6); HEMATOCRIT 23.7 % (42.0-52.0); HEMOGLOBIN 7.4 g/dl (14.0-17.9); LYMPHOCYTES # (AUTO) 0.4 X10'3 (1.1-4.8); LYMPHOCYTES % (AUTO) 1.6 % (21-51); MEAN CORPUSCULAR HEMOGLOBIN 18.6 PG (27.0-31.0); MEAN CORPUSCULAR HGB CONC 31.2 g/dL (33.0-36.5); MEAN CORPUSCULAR VOLUME 59.6 FL (78-98); MEAN PLATELET VOLUME 8.2 FL (7.4-10.4); MONOCYTES # (AUTO) 1.7 X10'3 (0-0.9); MONOCYTES % (AUTO) 6.2 % (2-12); NEUTROPHILS # (AUTO) 24.8 X10'3 (1.8-7.7); NEUTROPHILS % (AUTO) 91.8 % (42-75); PLATELET COUNT 228 X10'3 (140-440); RED BLOOD COUNT 3.98 X10'6 (4.70-6.10); RED CELL DISTRIBUTION WIDTH 18.2 % (11.5-14.5)
[2021-03-12 12:10] LABS: ALANINE AMINOTRANSFERASE 16 U/L (12-78); ALBUMIN 2.6 G/DL (3.4-5.0); ALBUMIN/GLOBULIN RATIO 0.7 (1.1-1.5); ALKALINE PHOSPHATASE 96 IU/L (46-116); ANION GAP 11 (8-16); ASPARTATE AMINO TRANSFERASE 19 U/L (10-37); BILIRUBIN,TOTAL 0.5 MG/DL (0.1-1.0); BLOOD UREA NITROGEN 37 MG/DL (7-18); CALCIUM 7.8 MG/DL (8.5-10.1); CHLORIDE 104 MMOL/L (99-107); CREATININE 2.31 MG/DL (0.60-1.10); GLUCOSE 107 MG/DL (70-104); POTASSIUM 3.9 MMOL/L (3.5-5.1); SODIUM 137 MMOL/L (135-145); TOTAL CARBON DIOXIDE 22.1 MMOL/L (24-32); TOTAL PROTEIN 6.2 G/DL (6.4-8.2); eGFR 27 ML/MIN
--- NOTE | 2021-03-12 12:12 | NUR ---
SPOKE WITH FREDERICK FROM [facility] FOR AN UPDATE ON PT.
[2021-03-12 12:14] LABS: % IRON SATURATION 2 % (11-46); IRON 6 UG/DL (53-167); TOTAL IRON BINDING CAPACITY 276 UG/DL (259-388)
[2021-03-12 12:27] LABS: ANISOCYTOSIS 2+; ELLIPTOCYTES 1+; HYPOCHROMASIA 1+; MICROCYTOSIS 3+; PLATELET ESTIMATE NORMAL; POIKILOCYTOSIS FEW; TEAR DROP CELLS FEW; TOTAL CELLS COUNTED 100
--- NOTE | 2021-03-12 16:20 | NUR ---
Pt arrived to surgical floor via gurney. Transferred to hospital bed. 1 bag of belongings and slippers at bedside.
[2021-03-12 16:25] VITALS: BP 134/62
--- NOTE | 2021-03-12 18:38 | NUR ---
Patient in room ARI 350. I have received report from TEJINDER SCHWARTZ and had the opportunity to ask questions and assume patient care. Addendum: 03/12/21 at 1838 by Adeline Reyes RN Amended: Links added.
--- NOTE | 2021-03-12 18:41 | NUR ---
Problems reprioritized. Patient report given, questions answered & plan of care reviewed with EFREN Lr.
[2021-03-12 19:30] VITALS: BP 118/46
[2021-03-12] MEDS: acetaminophen 325mg tablet PO PRN (19:57)
--- NOTE | 2021-03-12 21:00 | NUR ---
dose thoazine held due to pt very lethargic with decreased blood pressure. temp has broken now.
--- NOTE | 2021-03-12 22:30 | NUR ---
pt inc of stool skin care done and diaphoretic. as a precaution blood sugar check done and noted it to be 101. stool sent to lab for occult blood as ordered dark tarry and greenish in appearance. bp retaken and now increased from 96/35 &88/32 to 122/52 temp at 98.8 ax. pt coughed and sats up to 97% on 2 liters. flow meter given to assist with this.
[2021-03-12 23:00] LABS: OCCULT BLOOD STOOL NEGATIVE (Neg)
[2021-03-13] VITALS (12 sets, daily range): BP systolic 97–138; BP diastolic 39–68
--- NOTE | 2021-03-13 02:10 | NUR ---
PT AWOKE AND USED FLUTTER VALVE INSTRUCTED. VSS.
--- NOTE | 2021-03-13 05:37 | NUR ---
PT REPOSITIONED UP IN BED AND USED FLUTTER VALVE WITH ENCOURAGEMENT.
[2021-03-13 06:02] LABS: ALANINE AMINOTRANSFERASE 15 U/L (12-78); ALBUMIN 2.2 G/DL (3.4-5.0); ALBUMIN/GLOBULIN RATIO 0.6 (1.1-1.5); ALKALINE PHOSPHATASE 89 IU/L (46-116); ANION GAP 13 (8-16); ASPARTATE AMINO TRANSFERASE 13 U/L (10-37); BILIRUBIN,TOTAL 0.4 MG/DL (0.1-1.0); BLOOD UREA NITROGEN 37 MG/DL (7-18); BUN/CREATININE RATIO 18.5 (5.4-32.0); CHLORIDE 109 MMOL/L (99-107); GLUCOSE 97 MG/DL (70-104); POTASSIUM 3.8 MMOL/L (3.5-5.1); SODIUM 144 MMOL/L (135-145); TOTAL CARBON DIOXIDE 22.2 MMOL/L (24-32); TOTAL PROTEIN 6.2 G/DL (6.4-8.2); eGFR 32 ML/MIN
[2021-03-13 06:09] LABS: BASOPHILS # (AUTO) 0.1 X10'3 (0-0.2); BASOPHILS % (AUTO) 0.2 % (0-1); EOSINOPHILS # (AUTO) 0.1 X10'3 (0-0.9); EOSINOPHILS % (AUTO) 0.3 % (0-6); HEMATOCRIT 22.3 % (42.0-52.0); LYMPHOCYTES # (AUTO) 0.4 X10'3 (1.1-4.8); LYMPHOCYTES % (AUTO) 1.9 % (21-51); MEAN CORPUSCULAR HEMOGLOBIN 18.7 PG (27.0-31.0); MEAN CORPUSCULAR HGB CONC 31.5 g/dL (33.0-36.5); MEAN CORPUSCULAR VOLUME 59.3 FL (78-98); MEAN PLATELET VOLUME 8.3 FL (7.4-10.4); MONOCYTES # (AUTO) 1.4 X10'3 (0-0.9); MONOCYTES % (AUTO) 6.3 % (2-12); NEUTROPHILS # (AUTO) 20.8 X10'3 (1.8-7.7); NEUTROPHILS % (AUTO) 91.3 % (42-75); PLATELET COUNT 204 X10'3 (140-440); RED BLOOD COUNT 3.76 X10'6 (4.70-6.10); RED CELL DISTRIBUTION WIDTH 18.7 % (11.5-14.5); WHITE BLOOD COUNT 22.8 X10'3 (4.5-11.0)
--- NOTE | 2021-03-13 06:28 | NUR ---
Problems reprioritized. Patient report given, questions answered & plan of care reviewed with WILD SCHWARTZ. Addendum: 03/13/21 at 0629 by Adeline Reyes RN Amended: Links added.
--- NOTE | 2021-03-13 06:42 | NUR ---
Patient in room ARI 350. I have received report from EFREN Lr and had the opportunity to ask questions and assume patient care.
[2021-03-13] MEDS: CefTRIAXone/D5W-Rocephin 1gm 50 ML IV SCH (07:38)
[2021-03-13] MEDS: docusate sod 100mg capsule PO SCH ×2 (07:39→20:00)
[2021-03-13] MEDS: sertraline 50mg tablet PO SCH (07:39)
[2021-03-13] MEDS: normal saline 1000ml 1,000 ML IV SCH ×2 (07:39→20:50)
[2021-03-13 07:45] LABS: TOTAL CELLS COUNTED 100
[2021-03-13 07:46] LABS: ANISOCYTOSIS 2+; ELLIPTOCYTES 1+; MICROCYTOSIS 3+; PLATELET ESTIMATE NORMAL; POLYCHROMASIA 1+; SCHISTOCYTES FEW
[2021-03-13 07:47] LABS: HYPOCHROMASIA 1+; TEAR DROP CELLS 1+
[2021-03-13] MEDS: chlorproMAZINE 25mg tablet PO SCH ×3 (08:00→20:51)
[2021-03-13] MEDS ORDERED: heparin, porcine 5000 units/ml vial SQ SCH (08:00)
[2021-03-13] MEDS: K and/or MAG REPLACEMENT MC SCH ×2 (08:45→20:00)
[2021-03-13] MEDS: azithromycin/NS 500mg/250ml 250 ML IV SCH (09:52)
[2021-03-13] MEDS: donepezil 5mg tablet PO SCH (10:17)
--- NOTE | 2021-03-13 10:37 | NUR ---
Dr. Elizondo in to see patient and aware patient's H/H is 7/.3 and vital signs. Per Dr. Elizondo he will look to see if patient has been on iron supplement in the past and no need to transfuse at this time. Will continue to monitor.
--- NOTE | 2021-03-13 12:44 | NUR ---
Malnutrition consult: Pt admitted from previous snf facility w/ increasing SOB, pt w/ hx of dementia per EMR. Current scaled wt 88.6kg compared to last scaled wt 77.8kg in May 2018. Upon assessment, pt sleeping and did not wake for interview. Pt observed at bedside w/ possible mild temporal wasting though unsure of baseline. No other signs of muscle/fat wasting observed. Pt currently NPO, no edema noted. At this time, pt does not meet minimum criteria for malnutrition, will continue to monitor. Addendum: 03/13/21 at [address] Amended: Links added.
[2021-03-13] MEDS ORDERED: acetaminophen 325mg tablet PO ONE (14:35)
--- NOTE | 2021-03-13 14:37 | NUR ---
Received call from Dr. Elizondo that he had spoken to patient's son Jorge and Jorge jesica with blood transfusion. Called son Jorge to confirm telephone consent with second RN Yuliya.
--- NOTE | 2021-03-13 18:38 | NUR ---
Problems reprioritized. Patient report given, questions answered & plan of care reviewed with EFREN Lr.
--- NOTE | 2021-03-13 18:40 | NUR ---
Student documentation: I have reviewed and agree with all interventions, assessments performed and documented by SN Alisa. Student Medication Administration: For this medication-pass time frame, all medication were reviewed, dispensed, administered and documented per hospital policy by SN Alisa.
[2021-03-13] MEDS: lactobacillus rhamnosus 10,000 MMU CELLS/CAPSULE PO SCH (20:50)
--- NOTE | 2021-03-13 23:16 | NUR ---
inc of stool liquid like with consistency. hs care done lien change and mouth care done yanker set up to get what pt coughed up with encouragement. cough weak. has an intermittent audible expiratory wheeze using flutter valve with encouragement. taking po water well at this time. mouth dry with crust from mouth breathing and had been npo now on a regular diet with aspiration precautions. no s&s of aspiration with drinking water and eating a yogurt fed to him earlier.
--- NOTE | 2021-03-14 00:40 | NUR ---
pt had positive blood cultures page to Dr Chun and notified of gram negative rods no change in orders since pt on Rocephin and Zithromax for treatment.
[2021-03-14] MEDS: acetaminophen 325mg tablet PO PRN ×2 (02:11→20:31)
--- NOTE | 2021-03-14 02:16 | NUR ---
PT'S TEMP BACK UP TYLENOL RUSHED IN APPLESAUCE GIVEN TO HIM FOR THIS.
[2021-03-14] MEDS: normal saline 1000ml 1,000 ML IV SCH ×3 (05:21→20:17)
[2021-03-14 05:56] LABS: BASOPHILS % (AUTO) 0.1 % (0-1); EOSINOPHILS # (AUTO) 0.2 X10'3 (0-0.9); EOSINOPHILS % (AUTO) 0.8 % (0-6); HEMATOCRIT 25.8 % (42.0-52.0); HEMOGLOBIN 8.1 g/dl (14.0-17.9); LYMPHOCYTES # (AUTO) 0.6 X10'3 (1.1-4.8); LYMPHOCYTES % (AUTO) 2.9 % (21-51); MEAN CORPUSCULAR HEMOGLOBIN 19.5 PG (27.0-31.0); MEAN CORPUSCULAR HGB CONC 31.3 g/dL (33.0-36.5); MEAN CORPUSCULAR VOLUME 62.4 FL (78-98); MEAN PLATELET VOLUME 8.6 FL (7.4-10.4); MONOCYTES # (AUTO) 1.8 X10'3 (0-0.9); MONOCYTES % (AUTO) 8.8 % (2-12); NEUTROPHILS # (AUTO) 18.3 X10'3 (1.8-7.7); NEUTROPHILS % (AUTO) 87.4 % (42-75); PLATELET COUNT 220 X10'3 (140-440); RED BLOOD COUNT 4.13 X10'6 (4.70-6.10); RED CELL DISTRIBUTION WIDTH 21.6 % (11.5-14.5); WHITE BLOOD COUNT 20.9 X10'3 (4.5-11.0)
[2021-03-14 06:10] LABS: ALANINE AMINOTRANSFERASE 12 U/L (12-78); ALBUMIN 2.1 G/DL (3.4-5.0); ALBUMIN/GLOBULIN RATIO 0.5 (1.1-1.5); ALKALINE PHOSPHATASE 85 IU/L (46-116); ANION GAP 12 (8-16); ASPARTATE AMINO TRANSFERASE 10 U/L (10-37); BILIRUBIN,TOTAL 0.5 MG/DL (0.1-1.0); BLOOD UREA NITROGEN 31 MG/DL (7-18); CALCIUM 8.3 MG/DL (8.5-10.1); CHLORIDE 112 MMOL/L (99-107); CREATININE 1.55 MG/DL (0.60-1.10); GLUCOSE 97 MG/DL (70-104); POTASSIUM 3.9 MMOL/L (3.5-5.1); SODIUM 146 MMOL/L (135-145); TOTAL CARBON DIOXIDE 22.2 MMOL/L (24-32); TOTAL PROTEIN 6.4 G/DL (6.4-8.2); eGFR 43 ML/MIN
--- NOTE | 2021-03-14 06:11 | NUR ---
Problems reprioritized. Patient report given, questions answered & plan of care reviewed with Steven Navarro. Addendum: 03/14/21 at 0612 by Adeline Reyes RN Amended: Links added.
--- NOTE | 2021-03-14 06:32 | NUR ---
Patient in room ARI 350. I have received report from Adeline SCHWARTZ and had the opportunity to ask questions and assume patient care.
[2021-03-14 08:00] VITALS: BP 130/61
[2021-03-14] MEDS: K and/or MAG REPLACEMENT MC SCH ×2 (08:00→20:00)
[2021-03-14 08:23] LABS: ANISOCYTOSIS 3+; ELLIPTOCYTES 1+; HYPOCHROMASIA 2+; MICROCYTOSIS 2+; PLATELET ESTIMATE NORMAL
[2021-03-14 08:24] LABS: SCHISTOCYTES FEW; TARGET CELLS FEW
[2021-03-14] MEDS: lactobacillus rhamnosus 10,000 MMU CELLS/CAPSULE PO SCH ×2 (08:55→20:16)
[2021-03-14] MEDS: chlorproMAZINE 25mg tablet PO SCH ×3 (08:55→20:17)
[2021-03-14] MEDS: docusate sod 100mg capsule PO SCH ×2 (08:55→20:17)
[2021-03-14] MEDS: donepezil 5mg tablet PO SCH (08:56)
[2021-03-14] MEDS: sertraline 50mg tablet PO SCH (08:56)
[2021-03-14] MEDS: CefTRIAXone/D5W-Rocephin 1gm 50 ML IV SCH (08:58)
[2021-03-14] MEDS: metoprolol tartrate 12.5mg (1/2 tablet) PO SCH (10:18)
[2021-03-14] MEDS: azithromycin/NS 500mg/250ml 250 ML IV SCH (10:18)
[2021-03-14 12:00] VITALS: BP 141/65
--- NOTE | 2021-03-14 18:45 | NUR ---
Problems reprioritized. Patient report given, questions answered & plan of care reviewed with Jaleesa SCHWARTZ.
[2021-03-14 21:28] VITALS: BP 153/72
[2021-03-15] VITALS: BP 118/63
[2021-03-15 06:01] LABS: BASOPHILS % (AUTO) 0.1 % (0-1); EOSINOPHILS # (AUTO) 0.4 X10'3 (0-0.9); EOSINOPHILS % (AUTO) 2.4 % (0-6); HEMATOCRIT 25.1 % (42.0-52.0); HEMOGLOBIN 7.9 g/dl (14.0-17.9); LYMPHOCYTES # (AUTO) 0.6 X10'3 (1.1-4.8); LYMPHOCYTES % (AUTO) 3.4 % (21-51); MEAN CORPUSCULAR HEMOGLOBIN 19.6 PG (27.0-31.0); MEAN CORPUSCULAR HGB CONC 31.5 g/dL (33.0-36.5); MEAN PLATELET VOLUME 8.6 FL (7.4-10.4); MONOCYTES # (AUTO) 1.5 X10'3 (0-0.9); MONOCYTES % (AUTO) 8.2 % (2-12); NEUTROPHILS # (AUTO) 15.4 X10'3 (1.8-7.7); NEUTROPHILS % (AUTO) 85.9 % (42-75); PLATELET COUNT 224 X10'3 (140-440); RED BLOOD COUNT 4.05 X10'6 (4.70-6.10); RED CELL DISTRIBUTION WIDTH 21.2 % (11.5-14.5)
[2021-03-15 06:15] LABS: ALANINE AMINOTRANSFERASE 7 U/L (12-78); ALBUMIN/GLOBULIN RATIO 0.5 (1.1-1.5); ALKALINE PHOSPHATASE 106 IU/L (46-116); ANION GAP 12 (8-16); ASPARTATE AMINO TRANSFERASE 12 U/L (10-37); BILIRUBIN,TOTAL 0.4 MG/DL (0.1-1.0); BLOOD UREA NITROGEN 23 MG/DL (7-18); BUN/CREATININE RATIO 16.7 (5.4-32.0); CHLORIDE 110 MMOL/L (99-107); CREATININE 1.38 MG/DL (0.60-1.10); GLUCOSE 114 MG/DL (70-104); POTASSIUM 3.4 MMOL/L (3.5-5.1); SODIUM 144 MMOL/L (135-145); TOTAL CARBON DIOXIDE 21.6 MMOL/L (24-32); eGFR 49 ML/MIN
--- NOTE | 2021-03-15 06:31 | NUR ---
Patient in room ARI 358. I have received report from Jaleesa SCHWARTZ and had the opportunity to ask questions and assume patient care.
[2021-03-15] MEDS: normal saline 1000ml 1,000 ML IV SCH (06:37)
--- NOTE | 2021-03-15 06:41 | NUR ---
Problems reprioritized. Patient report given, questions answered & plan of care reviewed with EFREN Harris.
--- NOTE | 2021-03-15 06:41 | NUR ---
Student documentation: I have reviewed and agree with all interventions, assessments performed and documented by [place] Student Nurse.
--- NOTE | 2021-03-15 07:35 | NUR ---
Patient in room ARI 358. I have received report from SANTO SCHWARTZ and had the opportunity to ask questions and assume patient care.
[2021-03-15 07:52] VITALS: BP 123/66
[2021-03-15] MEDS: K and/or MAG REPLACEMENT MC SCH ×2 (08:00→20:00)
[2021-03-15] MEDS: CefTRIAXone/D5W-Rocephin 1gm 50 ML IV SCH (08:41)
[2021-03-15] MEDS: metoprolol tartrate 12.5mg (1/2 tablet) PO SCH (08:43)
[2021-03-15] MEDS: chlorproMAZINE 25mg tablet PO SCH ×3 (08:43→19:43)
[2021-03-15] MEDS: sertraline 50mg tablet PO SCH (08:43)
[2021-03-15] MEDS: donepezil 5mg tablet PO SCH (08:44)
[2021-03-15] MEDS: ascorbic acid 500mg tablet PO SCH ×3 (08:44→17:23)
[2021-03-15] MEDS: ferrous gluconate 324mg tablet PO SCH ×3 (08:44→17:23)
[2021-03-15] MEDS: docusate sod 100mg capsule PO SCH ×2 (08:44→19:43)
[2021-03-15] MEDS: lactobacillus rhamnosus 10,000 MMU CELLS/CAPSULE PO SCH ×2 (08:44→19:41)
--- NOTE | 2021-03-15 08:45 | NUR ---
PAGER ID: [phone] MESSAGE: JEAN PIERRE SURG [id number] RE: [id number] O[place]Lea PATIENTS K+ 3.4 WOULD YOU WANT ME TO ADD THE REPLACEMENT PROTOCOL TO THE MED LIST. THANKS Addendum: 03/15/21 at 0918 by Prabhakar Fang RN RESPONDED ORDERS WERE RECEIVED AT THIS TIME.
[2021-03-15] MEDS ORDERED: magnesium 2GM in 50ml NS 50 ML IV PRN (09:10)
[2021-03-15] MEDS ORDERED: magnesium Cl slow-release 64mg tablet PO PRN (09:10)
[2021-03-15] MEDS ORDERED: potassium Cl 40MEQ/1/2NS 520ml 520 ML IV PRN (09:10)
[2021-03-15] MEDS ORDERED: magnesium 4gm in 100ml NS 100 ML IV PRN (09:10)
[2021-03-15] MEDS ORDERED: potassium Cl 20 mEq SR tablet PO PRN (09:10)
[2021-03-15 09:34] LABS: ANISOCYTOSIS 3+; PLATELET ESTIMATE NORMAL
[2021-03-15 09:35] LABS: ELLIPTOCYTES 1+; HYPOCHROMASIA 2+; LARGE PLATELETS FEW; MICROCYTOSIS 2+; SCHISTOCYTES FEW
[2021-03-15] MEDS: azithromycin/NS 500mg/250ml 250 ML IV SCH (10:23)
[2021-03-15] MEDS: potassium Cl 20 mEq SR tablet PO PRN ×2 (11:02→19:43)
[2021-03-15 12:00] VITALS: BP 131/77
[2021-03-15] MEDS: furosemide 40mg/4ml inj IV SCH ×2 (12:55→19:50)
--- NOTE | 2021-03-15 18:00 | NUR ---
Student documentation: I have reviewed and agree with all interventions, assessments performed and documented by NANDO JULES.
--- NOTE | 2021-03-15 18:37 | NUR ---
Patient in room ARI 358A. I have received report from EFREN Harris and had the opportunity to ask questions and assume patient care.
--- NOTE | 2021-03-15 18:55 | NUR ---
Problems reprioritized. Patient report given, questions answered & plan of care reviewed with Jaleesa SCHWARTZ.
[2021-03-15] MEDS: tamsulosin 0.4mg capsule PO SCH (19:42)
[2021-03-15 20:00] VITALS: BP 147/75
[2021-03-16] VITALS: BP 124/86
[2021-03-16 05:45] LABS: BASOPHILS # (AUTO) 0.1 X10'3 (0-0.2); BASOPHILS % (AUTO) 0.4 % (0-1); EOSINOPHILS # (AUTO) 0.3 X10'3 (0-0.9); EOSINOPHILS % (AUTO) 1.8 % (0-6); HEMATOCRIT 24.1 % (42.0-52.0); HEMOGLOBIN 7.6 g/dl (14.0-17.9); LYMPHOCYTES % (AUTO) 5.3 % (21-51); MEAN CORPUSCULAR HEMOGLOBIN 19.4 PG (27.0-31.0); MEAN CORPUSCULAR HGB CONC 31.6 g/dL (33.0-36.5); MEAN CORPUSCULAR VOLUME 61.5 FL (78-98); MEAN PLATELET VOLUME 8.2 FL (7.4-10.4); MONOCYTES # (AUTO) 1.6 X10'3 (0-0.9); MONOCYTES % (AUTO) 8.2 % (2-12); NEUTROPHILS % (AUTO) 84.3 % (42-75); PLATELET COUNT 269 X10'3 (140-440); RED BLOOD COUNT 3.93 X10'6 (4.70-6.10); RED CELL DISTRIBUTION WIDTH 20.6 % (11.5-14.5)
[2021-03-16 06:35] LABS: ALANINE AMINOTRANSFERASE 17 U/L (12-78); ALBUMIN 2.1 G/DL (3.4-5.0); ALBUMIN/GLOBULIN RATIO 0.5 (1.1-1.5); ALKALINE PHOSPHATASE 126 IU/L (46-116); ANION GAP 11 (8-16); ASPARTATE AMINO TRANSFERASE 15 U/L (10-37); BILIRUBIN,TOTAL 0.3 MG/DL (0.1-1.0); BLOOD UREA NITROGEN 23 MG/DL (7-18); BUN/CREATININE RATIO 15.3 (5.4-32.0); CALCIUM 8.3 MG/DL (8.5-10.1); CHLORIDE 106 MMOL/L (99-107); GLUCOSE 97 MG/DL (70-104); POTASSIUM 3.5 MMOL/L (3.5-5.1); SODIUM 142 MMOL/L (135-145); TOTAL CARBON DIOXIDE 25.5 MMOL/L (24-32); TOTAL PROTEIN 6.3 G/DL (6.4-8.2); eGFR 45 ML/MIN
--- NOTE | 2021-03-16 06:46 | NUR ---
Problems reprioritized. Patient report given, questions answered & plan of care reviewed with EFREN Darling.
[2021-03-16 07:25] VITALS: BP 121/68
[2021-03-16] MEDS: K and/or MAG REPLACEMENT MC SCH ×2 (08:00→20:00)
[2021-03-16] MEDS: chlorproMAZINE 25mg tablet PO SCH ×3 (08:51→23:14)
[2021-03-16] MEDS: donepezil 5mg tablet PO SCH (08:51)
[2021-03-16] MEDS: ferrous gluconate 324mg tablet PO SCH ×3 (08:54→17:30)
[2021-03-16] MEDS: metoprolol tartrate 12.5mg (1/2 tablet) PO SCH ×2 (08:54→23:15)
[2021-03-16] MEDS: lactobacillus rhamnosus 10,000 MMU CELLS/CAPSULE PO SCH ×2 (08:54→23:16)
[2021-03-16] MEDS: docusate sod 100mg capsule PO SCH ×2 (08:54→20:00)
[2021-03-16] MEDS: ascorbic acid 500mg tablet PO SCH ×3 (08:55→17:30)
[2021-03-16] MEDS: sertraline 50mg tablet PO SCH (08:56)
[2021-03-16] MEDS: furosemide 40mg/4ml inj IV SCH ×2 (09:24→23:16)
[2021-03-16 11:00] VITALS: BP 117/52
--- NOTE | 2021-03-16 16:19 | NUR ---
PAGER ID: [phone] MESSAGE: Wade Melgar 358A- FYI- Pt still sounds very wet, lots of crackles & wheezes, cannot lie flat. Urine output so far 1100ml. Lasix 40mg given this am. He is SL. I just an FYI. BP100/46, RR18, 98.0 oral, HR 96. Thank you. Lisset Krause [phone]
--- NOTE | 2021-03-16 18:30 | NUR ---
Patient in room ARI 358. I have received report from EFREN Darling and had the opportunity to ask questions and assume patient care. Addendum: 03/17/21 at 0421 by John Porter RN Amended: Links added.
[2021-03-16 19:30] VITALS: BP 111/52
[2021-03-16 22:44] VITALS: BP 136/61
[2021-03-16] MEDS: tamsulosin 0.4mg capsule PO SCH (23:15)
--- NOTE | 2021-03-17 06:00 | NUR ---
Patient in room ARI 358. I have received report from Lyla SCHWARTZ and had the opportunity to ask questions and assume patient care.
--- NOTE | 2021-03-17 06:30 | NUR ---
Problems reprioritized. Patient report given, questions answered & plan of care reviewed with EFREN Darling. Addendum: 03/17/21 at 0646 by John Porter RN Amended: Links added.
[2021-03-17 06:59] LABS: BASOPHILS # (AUTO) 0.1 X10'3 (0-0.2); BASOPHILS % (AUTO) 0.3 % (0-1); EOSINOPHILS # (AUTO) 0.3 X10'3 (0-0.9); EOSINOPHILS % (AUTO) 1.8 % (0-6); HEMOGLOBIN 8.1 g/dl (14.0-17.9); LYMPHOCYTES # (AUTO) 0.9 X10'3 (1.1-4.8); LYMPHOCYTES % (AUTO) 4.8 % (21-51); MEAN CORPUSCULAR HEMOGLOBIN 19.3 PG (27.0-31.0); MEAN CORPUSCULAR HGB CONC 31.1 g/dL (33.0-36.5); MEAN PLATELET VOLUME 8.6 FL (7.4-10.4); MONOCYTES # (AUTO) 1.5 X10'3 (0-0.9); MONOCYTES % (AUTO) 8.4 % (2-12); NEUTROPHILS # (AUTO) 15.1 X10'3 (1.8-7.7); NEUTROPHILS % (AUTO) 84.7 % (42-75); PLATELET COUNT 338 X10'3 (140-440); RED BLOOD COUNT 4.19 X10'6 (4.70-6.10); RED CELL DISTRIBUTION WIDTH 20.3 % (11.5-14.5); WHITE BLOOD COUNT 17.9 X10'3 (4.5-11.0)
[2021-03-17 07:00] VITALS: BP 107/55
[2021-03-17 07:15] LABS: ALANINE AMINOTRANSFERASE 16 U/L (12-78); ALBUMIN/GLOBULIN RATIO 0.5 (1.1-1.5); ALKALINE PHOSPHATASE 134 IU/L (46-116); ANION GAP 11 (8-16); ASPARTATE AMINO TRANSFERASE 18 U/L (10-37); BILIRUBIN,TOTAL 0.4 MG/DL (0.1-1.0); BLOOD UREA NITROGEN 24 MG/DL (7-18); CALCIUM 8.1 MG/DL (8.5-10.1); CHLORIDE 105 MMOL/L (99-107); GLUCOSE 86 MG/DL (70-104); MAGNESIUM 1.9 MG/DL (1.5-2.4); POTASSIUM 3.3 MMOL/L (3.5-5.1); SODIUM 142 MMOL/L (135-145); TOTAL CARBON DIOXIDE 25.8 MMOL/L (24-32); TOTAL PROTEIN 6.2 G/DL (6.4-8.2); eGFR 45 ML/MIN
[2021-03-17] MEDS ORDERED: levoFLOXACIN-Levaquin 500mg/D5 100 ML IV SCH (08:00)
[2021-03-17] MEDS: K and/or MAG REPLACEMENT MC SCH ×2 (08:00→20:00)
[2021-03-17] MEDS: metoprolol tartrate 12.5mg (1/2 tablet) PO SCH ×2 (08:00→21:58)
[2021-03-17] MEDS: donepezil 5mg tablet PO SCH (09:06)
[2021-03-17] MEDS: lactobacillus rhamnosus 10,000 MMU CELLS/CAPSULE PO SCH ×2 (09:07→21:53)
[2021-03-17] MEDS: docusate sod 100mg capsule PO SCH ×2 (09:07→21:53)
[2021-03-17] MEDS: furosemide 40mg/4ml inj IV SCH (09:07)
[2021-03-17] MEDS: chlorproMAZINE 25mg tablet PO SCH ×3 (09:07→21:54)
[2021-03-17] MEDS: ascorbic acid 500mg tablet PO SCH ×3 (09:07→17:33)
[2021-03-17] MEDS: sertraline 50mg tablet PO SCH (09:09)
[2021-03-17] MEDS: ferrous gluconate 324mg tablet PO SCH ×3 (09:09→17:33)
[2021-03-17 10:57] LABS: PLATELET ESTIMATE NORMAL
[2021-03-17 10:58] LABS: ANISOCYTOSIS 3+; MICROCYTOSIS 2+
[2021-03-17 10:59] LABS: ELLIPTOCYTES FEW; POLYCHROMASIA 2+; SCHISTOCYTES 1+; TEAR DROP CELLS FEW
[2021-03-17 12:00] VITALS: BP 113/51
--- NOTE | 2021-03-17 12:15 | NUR ---
Initial: Pt admit for pyelonephritis, UTI, and PNA. Per MD note pt with sepsis secondary to E. coli bacteremia and UTI and with iron deficiency anemia, currently receiving routine iron. Pt on a regular diet and eating poorly throughout LOS, documented with 25-50% PO intake x 4 meals out of 12 meals since admit. Discussed patient's intake with RN who reports pt has been sleeping through meals however has been consuming liquids. RN reports pt is able to be independent and just requires direction during meal times. RN also reports pt is improving today so hopeful that PO intake will improve. D/w RN recommendation for Ensure Enlive TID given RN reports of pt being accepting of liquids and d/w dietary to send shakes with meals to optimize PO intake. RN denies noticing pt with any difficulty chewing/swallowing. LBM 03/16, receiving routine bowel care. Will continue to follow closely and monitor need for further nutrition intervention. Recommendations: 1) Continue regular diet 2) Ensure Enlive TIDWM 3) Smoothie WB, shake BIDLD 4) Encourage PO intake of meals and ONS; monitor need for meal assistance 5) Continue iron replacement for iron deficiency anemia per MD 6) Routine bowel care 7) Weekly scaled weights Addendum: 03/17/21 at [address] Amended: Links added.
[2021-03-17] MEDS: lactose-reduced food (Ensure Enlive) - 237ml bottle PO SCH ×2 (13:28→18:00)
[2021-03-17] MEDS: piperacillin/tazo 3.375gm/50ml 50 ML IV SCH (17:33)
--- NOTE | 2021-03-17 18:00 | NUR ---
Student documentation: I have reviewed and agree with all interventions, assessments performed and documented by [facility] student.
--- NOTE | 2021-03-17 18:40 | NUR ---
Problems reprioritized. Patient report given, questions answered & plan of care reviewed with John SCHWARTZ Traveler.
--- NOTE | 2021-03-17 18:43 | NUR ---
Problems reprioritized. Patient report given, questions answered & plan of care reviewed with EFREN Lopez traveler.
[2021-03-17] MEDS: tamsulosin 0.4mg capsule PO SCH (21:53)
[2021-03-17] MEDS: potassium Cl 20 mEq SR tablet PO PRN (21:53)
[2021-03-17] MEDS: acetaminophen 325mg tablet PO PRN (21:53)
[2021-03-17 22:00] VITALS: BP 113/46
[2021-03-18] MEDS: piperacillin/tazo 3.375gm/50ml 50 ML IV SCH ×4 (00:26→23:53)
[2021-03-18 06:53] LABS: MAGNESIUM 2.3 MG/DL (1.5-2.4); POTASSIUM 3.7 MMOL/L (3.5-5.1)
[2021-03-18] MEDS: donepezil 5mg tablet PO SCH (07:57)
[2021-03-18] MEDS: metoprolol tartrate 12.5mg (1/2 tablet) PO SCH ×2 (07:58→21:00)
[2021-03-18] MEDS: K and/or MAG REPLACEMENT MC SCH ×2 (07:58→20:00)
[2021-03-18 08:00] VITALS: BP 112/55
[2021-03-18] MEDS: ferrous gluconate 324mg tablet PO SCH ×3 (08:18→17:28)
[2021-03-18] MEDS: lactobacillus rhamnosus 10,000 MMU CELLS/CAPSULE PO SCH ×2 (08:18→20:59)
[2021-03-18] MEDS: ascorbic acid 500mg tablet PO SCH ×3 (08:19→17:28)
[2021-03-18] MEDS: docusate sod 100mg capsule PO SCH ×2 (08:19→20:59)
[2021-03-18] MEDS: sertraline 50mg tablet PO SCH (08:19)
[2021-03-18] MEDS: chlorproMAZINE 25mg tablet PO SCH ×3 (08:19→20:59)
[2021-03-18] MEDS: lactose-reduced food (Ensure Enlive) - 237ml bottle PO SCH ×3 (08:19→17:56)
[2021-03-18] MEDS: acetaminophen 325mg tablet PO PRN ×2 (08:28→10:36)
--- NOTE | 2021-03-18 09:02 | NUR ---
MD made aware of pt's c/o severe R arm pain.
[2021-03-18] MEDS ORDERED: vancomycin/NS 1 GM ADD-VANTAGE 250 ML X 1 DOSE IV SCH (10:00)
[2021-03-18 11:21] LABS: BASOPHILS # (AUTO) 0.1 X10'3 (0-0.2); BASOPHILS % (AUTO) 0.3 % (0-1); EOSINOPHILS # (AUTO) 0.2 X10'3 (0-0.9); EOSINOPHILS % (AUTO) 1.2 % (0-6); HEMATOCRIT 27.4 % (42.0-52.0); HEMOGLOBIN 8.6 g/dl (14.0-17.9); LYMPHOCYTES # (AUTO) 0.9 X10'3 (1.1-4.8); LYMPHOCYTES % (AUTO) 4.3 % (21-51); MEAN CORPUSCULAR HEMOGLOBIN 19.4 PG (27.0-31.0); MEAN CORPUSCULAR HGB CONC 31.4 g/dL (33.0-36.5); MEAN CORPUSCULAR VOLUME 61.8 FL (78-98); MEAN PLATELET VOLUME 8.5 FL (7.4-10.4); MONOCYTES # (AUTO) 1.9 X10'3 (0-0.9); MONOCYTES % (AUTO) 8.6 % (2-12); NEUTROPHILS # (AUTO) 18.5 X10'3 (1.8-7.7); NEUTROPHILS % (AUTO) 85.6 % (42-75); PLATELET COUNT 451 X10'3 (140-440); RED BLOOD COUNT 4.43 X10'6 (4.70-6.10); RED CELL DISTRIBUTION WIDTH 20.6 % (11.5-14.5); WHITE BLOOD COUNT 21.6 X10'3 (4.5-11.0)
[2021-03-18 11:52] LABS: ALANINE AMINOTRANSFERASE 21 U/L (12-78); ALBUMIN 2.2 G/DL (3.4-5.0); ALBUMIN/GLOBULIN RATIO 0.4 (1.1-1.5); ALKALINE PHOSPHATASE 151 IU/L (46-116); ANION GAP 8 (8-16); ASPARTATE AMINO TRANSFERASE 26 U/L (10-37); BILIRUBIN,TOTAL 0.4 MG/DL (0.1-1.0); BLOOD UREA NITROGEN 39 MG/DL (7-18); CALCIUM 8.8 MG/DL (8.5-10.1); CHLORIDE 105 MMOL/L (99-107); CREATININE 2.17 MG/DL (0.60-1.10); GLUCOSE 144 MG/DL (70-104); POTASSIUM 3.7 MMOL/L (3.5-5.1); SODIUM 143 MMOL/L (135-145); TOTAL PROTEIN 7.1 G/DL (6.4-8.2); eGFR 29 ML/MIN
[2021-03-18 12:00] VITALS: BP 117/49
[2021-03-18] MEDS: normal saline 1000ml 1,000 ML IV SCH ×2 (13:09→22:52)
[2021-03-18 13:16] LABS: TOTAL CELLS COUNTED 100
[2021-03-18 13:17] LABS: PLATELET ESTIMATE NORMAL
[2021-03-18 13:18] LABS: ANISOCYTOSIS 3+; ELLIPTOCYTES 1+; HYPOCHROMASIA 2+; MICROCYTOSIS 2+
[2021-03-18 13:19] LABS: SCHISTOCYTES FEW
[2021-03-18 13:22] LABS: HYPERSEGMENTED NEUTROPHILS 1+; POLYCHROMASIA 1+
[2021-03-18 18:00] VITALS: BP 133/59
--- NOTE | 2021-03-18 20:01 | NUR ---
Patient in room ARI 358. I have received report from BRANDON SCHWARTZ and had the opportunity to ask questions and assume patient care.
[2021-03-18] MEDS: tamsulosin 0.4mg capsule PO SCH (20:59)
[2021-03-19] VITALS: BP 128/56
[2021-03-19 00:10] VITALS: BP 128/56
[2021-03-19 02:16] VITALS: BP 133/59
[2021-03-19 02:18] VITALS: BP 128/56
--- NOTE | 2021-03-19 05:55 | NUR ---
Student documentation: I have reviewed and agree with all interventions, assessments performed and documented by [employer] STUDENT.
--- NOTE | 2021-03-19 05:56 | NUR ---
Student documentation: I have reviewed and agree with all interventions, assessments performed and documented by [employer] STUDENT.
--- NOTE | 2021-03-19 05:56 | NUR ---
Student Medication Administration: For this medication-pass time frame, all medication were reviewed, dispensed, administered and documented per hospital policy by SASK[place] STUDENT.
--- NOTE | 2021-03-19 06:23 | NUR ---
I have received report from Kavita RN and had the opportunity to ask questions and assume patient care.
--- NOTE | 2021-03-19 06:23 | NUR ---
Problems reprioritized. Patient report given, questions answered & plan of care reviewed with Estela.
[2021-03-19 06:25] LABS: BASOPHILS % (AUTO) 0.3 % (0-1); EOSINOPHILS # (AUTO) 0.3 X10'3 (0-0.9); EOSINOPHILS % (AUTO) 1.6 % (0-6); HEMATOCRIT 25.5 % (42.0-52.0); LYMPHOCYTES # (AUTO) 0.9 X10'3 (1.1-4.8); LYMPHOCYTES % (AUTO) 4.9 % (21-51); MEAN CORPUSCULAR HEMOGLOBIN 19.5 PG (27.0-31.0); MEAN CORPUSCULAR HGB CONC 31.5 g/dL (33.0-36.5); MEAN PLATELET VOLUME 8.4 FL (7.4-10.4); MONOCYTES # (AUTO) 1.2 X10'3 (0-0.9); MONOCYTES % (AUTO) 6.6 % (2-12); NEUTROPHILS # (AUTO) 15.5 X10'3 (1.8-7.7); NEUTROPHILS % (AUTO) 86.6 % (42-75); PLATELET COUNT 477 X10'3 (140-440); RED BLOOD COUNT 4.12 X10'6 (4.70-6.10); WHITE BLOOD COUNT 17.9 X10'3 (4.5-11.0)
--- NOTE | 2021-03-19 06:27 | NUR ---
Problems reprioritized. Patient report given, questions answered & plan of care reviewed with VEENA SCHWARTZ.
[2021-03-19 06:33] LABS: GLUCOSE 103 MG/DL (70-104); POTASSIUM 3.9 MMOL/L (3.5-5.1); SODIUM 145 MMOL/L (135-145)
[2021-03-19 06:34] LABS: ALANINE AMINOTRANSFERASE 20 U/L (12-78); ALBUMIN 1.9 G/DL (3.4-5.0); ALBUMIN/GLOBULIN RATIO 0.4 (1.1-1.5); ALKALINE PHOSPHATASE 129 IU/L (46-116); ANION GAP 7 (8-16); ASPARTATE AMINO TRANSFERASE 20 U/L (10-37); BILIRUBIN,TOTAL 0.4 MG/DL (0.1-1.0); BLOOD UREA NITROGEN 28 MG/DL (7-18); BUN/CREATININE RATIO 18.8 (5.4-32.0); CHLORIDE 109 MMOL/L (99-107); CREATININE 1.49 MG/DL (0.60-1.10); MAGNESIUM 2.1 MG/DL (1.5-2.4); TOTAL CARBON DIOXIDE 28.7 MMOL/L (24-32); TOTAL PROTEIN 6.5 G/DL (6.4-8.2); eGFR 45 ML/MIN
[2021-03-19 06:56] LABS: ANISOCYTOSIS 3+; ELLIPTOCYTES FEW; HYPOCHROMASIA 1+; MICROCYTOSIS 2+; PLATELET ESTIMATE INCREASED; POIKILOCYTOSIS FEW; POLYCHROMASIA 1+; TARGET CELLS FEW
[2021-03-19] MEDS: donepezil 5mg tablet PO SCH (07:56)
[2021-03-19] MEDS: chlorproMAZINE 25mg tablet PO SCH ×3 (07:56→20:56)
[2021-03-19] MEDS: piperacillin/tazo 3.375gm/50ml 50 ML IV SCH ×2 (07:56→16:03)
[2021-03-19] MEDS: ferrous gluconate 324mg tablet PO SCH ×3 (07:56→17:38)
[2021-03-19] MEDS: ascorbic acid 500mg tablet PO SCH ×3 (07:57→17:38)
[2021-03-19] MEDS: metoprolol tartrate 12.5mg (1/2 tablet) PO SCH ×2 (07:57→20:58)
[2021-03-19] MEDS: docusate sod 100mg capsule PO SCH ×2 (07:57→20:57)
[2021-03-19] MEDS: sertraline 50mg tablet PO SCH (07:57)
[2021-03-19] MEDS: lactobacillus rhamnosus 10,000 MMU CELLS/CAPSULE PO SCH ×2 (07:58→20:58)
[2021-03-19] MEDS: normal saline 1000ml 1,000 ML IV SCH (07:58)
[2021-03-19] MEDS: lactose-reduced food (Ensure Enlive) - 237ml bottle PO SCH ×3 (08:11→18:30)
[2021-03-19] MEDS: K and/or MAG REPLACEMENT MC SCH ×2 (08:11→20:00)
--- NOTE | 2021-03-19 08:15 | NUR ---
PAGER ID: [phone] MESSAGE: Estela Surg [phone] Re: [id number] can we get orders for pain medication patient having back pain
[2021-03-19] MEDS ORDERED: traMADol 50MG tablet PO PRN (10:40)
[2021-03-19 11:33] VITALS: BP 114/51
--- NOTE | 2021-03-19 15:26 | NUR ---
PAGER ID: [phone] MESSAGE: Estela Surg [phone] Re: 358A please call re: bleeding scrotum and hardness
[2021-03-19] MEDS ORDERED: HYDROcodone/acetaminophen 5mg/325mg tablet PO PRN (15:35)
--- NOTE | 2021-03-19 15:40 | NUR ---
PAGER ID: [phone] MESSAGE: Lea Melgar. Can I get a dose of Lasix, he seems SOB with wheezing, Not a lot of output as well. I turned his IVF down to 50, they were at 100 ml/hr. Estela [phone]
[2021-03-19] MEDS: HYDROcodone/acetaminophen 10/325mg tab PO PRN (15:44)
--- NOTE | 2021-03-19 16:02 | NUR ---
PAGER ID: [phone] MESSAGE: [id number] Kael has only 200 output currently. [id number] Estela.
[2021-03-19] MEDS ORDERED: furosemide 20 MG/2 ML vial IV ONE (16:10)
[2021-03-19 19:00] VITALS: BP 143/65
[2021-03-19] MEDS: tamsulosin 0.4mg capsule PO SCH (20:57)
[2021-03-19] MEDS: oxybutynin 5mg tablet PO SCH (20:58)
[2021-03-19] MEDS: NYSTATIN CREAM - 30GM TUBE TP SCH (20:58)
[2021-03-20] VITALS: BP 120/57
[2021-03-20] MEDS: piperacillin/tazo 3.375gm/50ml 50 ML IV SCH ×3 (01:01→15:55)
[2021-03-20] MEDS: normal saline 1000ml 1,000 ML IV SCH (01:01)
--- NOTE | 2021-03-20 06:12 | NUR ---
I have received report from NOC shift RN and had the opportunity to ask questions and assume patient care.
--- NOTE | 2021-03-20 06:31 | NUR ---
Problems reprioritized. Patient report given, questions answered & plan of care reviewed with EFREN Palmer.
[2021-03-20 06:37] LABS: BASOPHILS # (AUTO) 0.1 X10'3 (0-0.2); BASOPHILS % (AUTO) 0.7 % (0-1); EOSINOPHILS # (AUTO) 0.3 X10'3 (0-0.9); EOSINOPHILS % (AUTO) 1.7 % (0-6); HEMATOCRIT 24.8 % (42.0-52.0); HEMOGLOBIN 7.6 g/dl (14.0-17.9); LYMPHOCYTES % (AUTO) 5.4 % (21-51); MEAN CORPUSCULAR HEMOGLOBIN 19.2 PG (27.0-31.0); MEAN CORPUSCULAR HGB CONC 30.5 g/dL (33.0-36.5); MEAN CORPUSCULAR VOLUME 62.8 FL (78-98); MEAN PLATELET VOLUME 8.4 FL (7.4-10.4); MONOCYTES # (AUTO) 1.2 X10'3 (0-0.9); MONOCYTES % (AUTO) 6.6 % (2-12); NEUTROPHILS # (AUTO) 15.1 X10'3 (1.8-7.7); NEUTROPHILS % (AUTO) 85.6 % (42-75); PLATELET COUNT 526 X10'3 (140-440); RED BLOOD COUNT 3.95 X10'6 (4.70-6.10); RED CELL DISTRIBUTION WIDTH 22.2 % (11.5-14.5); WHITE BLOOD COUNT 17.6 X10'3 (4.5-11.0)
--- NOTE | 2021-03-20 06:41 | NUR ---
Patient in room ARI 358. I have received report from Neha SCHWARTZ and had the opportunity to ask questions and assume patient care.
[2021-03-20 06:58] LABS: ALANINE AMINOTRANSFERASE 19 U/L (12-78); ALBUMIN 1.9 G/DL (3.4-5.0); ALBUMIN/GLOBULIN RATIO 0.5 (1.1-1.5); ALKALINE PHOSPHATASE 100 IU/L (46-116); ANION GAP 8 (8-16); ASPARTATE AMINO TRANSFERASE 21 U/L (10-37); BILIRUBIN,TOTAL 0.3 MG/DL (0.1-1.0); BLOOD UREA NITROGEN 22 MG/DL (7-18); BUN/CREATININE RATIO 15.2 (5.4-32.0); CALCIUM 8.1 MG/DL (8.5-10.1); CHLORIDE 109 MMOL/L (99-107); CREATININE 1.45 MG/DL (0.60-1.10); GLUCOSE 87 MG/DL (70-104); MAGNESIUM 2.2 MG/DL (1.5-2.4); POTASSIUM 3.4 MMOL/L (3.5-5.1); SODIUM 146 MMOL/L (135-145); TOTAL PROTEIN 6.1 G/DL (6.4-8.2); eGFR 47 ML/MIN
[2021-03-20 07:30] LABS: PLATELET ESTIMATE INCREASED; POLYCHROMASIA FEW
[2021-03-20 07:31] LABS: ANISOCYTOSIS 3+; ELLIPTOCYTES 1+; HYPOCHROMASIA 2+; MICROCYTOSIS 2+; TEAR DROP CELLS 1+
[2021-03-20 08:00] VITALS: BP 114/50
[2021-03-20] MEDS: K and/or MAG REPLACEMENT MC SCH ×2 (08:00→20:00)
[2021-03-20] MEDS: docusate sod 100mg capsule PO SCH ×2 (08:00→20:00)
[2021-03-20] MEDS: metoprolol tartrate 12.5mg (1/2 tablet) PO SCH ×2 (08:00→20:00)
[2021-03-20] MEDS: donepezil 5mg tablet PO SCH (08:39)
[2021-03-20] MEDS: chlorproMAZINE 25mg tablet PO SCH ×3 (08:40→20:48)
[2021-03-20] MEDS: lactobacillus rhamnosus 10,000 MMU CELLS/CAPSULE PO SCH ×2 (08:40→20:48)
[2021-03-20] MEDS: oxybutynin 5mg tablet PO SCH ×2 (08:40→20:48)
[2021-03-20] MEDS: sertraline 50mg tablet PO SCH (08:40)
[2021-03-20] MEDS: lactose-reduced food (Ensure Enlive) - 237ml bottle PO SCH ×3 (08:40→18:00)
[2021-03-20] MEDS: ascorbic acid 500mg tablet PO SCH ×3 (08:41→17:33)
[2021-03-20] MEDS: ferrous gluconate 324mg tablet PO SCH ×3 (08:41→17:34)
[2021-03-20] MEDS: NYSTATIN CREAM - 30GM TUBE TP SCH ×2 (08:42→20:50)
[2021-03-20] MEDS: HYDROcodone/acetaminophen 10/325mg tab PO PRN (08:49)
[2021-03-20] MEDS ORDERED: potassium Cl 20 mEq SR tablet PO PRN ×2 (09:30)
[2021-03-20] MEDS ORDERED: potassium Cl 40MEQ/1/2NS 520ml 520 ML IV PRN (09:30)
[2021-03-20] MEDS ORDERED: magnesium Cl slow-release 64mg tablet PO PRN (09:30)
[2021-03-20] MEDS ORDERED: VANCOMYCIN LEVEL IV ONE (09:30)
[2021-03-20] MEDS ORDERED: POTASSIUM BICARB 20meq eff tab 20 MEQ TABLET.EFF PO PRN (09:30)
[2021-03-20] MEDS ORDERED: magnesium 4gm in 100ml NS 100 ML IV PRN (09:30)
[2021-03-20] MEDS: dextrose 5%-water 1,000 ML IV SCH (10:16)
[2021-03-20 11:00] VITALS: BP 141/50
[2021-03-20] MEDS: POTASSIUM BICARB 20meq eff tab 20 MEQ TABLET.EFF PO PRN ×3 (12:07→20:48)
[2021-03-20] MEDS ORDERED: diphenoxylate/atropine tablet (Lomotil) PO PRN (14:35)
--- NOTE | 2021-03-20 14:40 | NUR ---
Reassessment: Pt placed on MM5 diet 03/19 though has had mostly 0% intake of meals; also consuming mostly 100% of ONS. Pt noted to be A&O x 1, though noted to be independent w/ meals. Pt may benefit from appetite stimulant per MD discretion. LBM 03/19 receiving routine colace. Pt also w/ D5 at 60ml/hr providing 245kcals. Will continue to monitor. Recommendations: 1) Continue regular diet; assist w/ meals 2) Ensure Enlive TIDWM 3) Tino CURTIS, jimbo MARRERO 4) Encourage PO intake of meals and ONS; monitor need for meal assistance 5) Appetite stimulant per MD discretion 6) Continue iron replacement for iron deficiency anemia per MD 7) Routine bowel care 8) Weekly scaled weights Addendum: 03/20/21 at [address] Amended: Links added.
[2021-03-20] MEDS ORDERED: loperamide 2mg capsule PO PRN (15:05)
[2021-03-20] MEDS ORDERED: loperamide 2mg capsule PO ONE (15:05)
--- NOTE | 2021-03-20 17:28 | NUR ---
Student documentation: I have reviewed all interventions, assessments performed and documented by Sergey JULES from [facility]. Student Medication Administration: For all medication-passes in the time frame from 0851-2275, all medication were reviewed, dispensed, administered and documented per hospital policy by Sergey JULES from [facility]. All heparin and Lovenox was approved and verified by primary RN to give.
--- NOTE | 2021-03-20 18:14 | NUR ---
Problems reprioritized. Patient report given, questions answered & plan of care reviewed with Neha SCHWATRZ.
[2021-03-20 20:00] VITALS: BP 114/42
[2021-03-20] MEDS: tamsulosin 0.4mg capsule PO SCH (20:48)
[2021-03-21] VITALS (10 sets, daily range): BP systolic 92–129; BP diastolic 49–64
[2021-03-21] MEDS: piperacillin/tazo 3.375gm/50ml 50 ML IV SCH ×3 (00:35→16:28)
[2021-03-21] MEDS: metoprolol tartrate 12.5mg (1/2 tablet) PO SCH ×3 (00:38→20:09)
[2021-03-21] MEDS: dextrose 5%-water 1,000 ML IV SCH ×2 (02:21→20:07)
[2021-03-21 06:13] LABS: BASOPHILS # (AUTO) 0.1 X10'3 (0-0.2); BASOPHILS % (AUTO) 0.4 % (0-1); EOSINOPHILS # (AUTO) 0.3 X10'3 (0-0.9); EOSINOPHILS % (AUTO) 1.5 % (0-6); HEMATOCRIT 22.2 % (42.0-52.0); LYMPHOCYTES # (AUTO) 1.3 X10'3 (1.1-4.8); LYMPHOCYTES % (AUTO) 6.8 % (21-51); MEAN CORPUSCULAR HEMOGLOBIN 19.8 PG (27.0-31.0); MEAN CORPUSCULAR HGB CONC 31.6 g/dL (33.0-36.5); MEAN CORPUSCULAR VOLUME 62.5 FL (78-98); MEAN PLATELET VOLUME 8.3 FL (7.4-10.4); MONOCYTES # (AUTO) 1.3 X10'3 (0-0.9); MONOCYTES % (AUTO) 6.9 % (2-12); NEUTROPHILS # (AUTO) 16.3 X10'3 (1.8-7.7); NEUTROPHILS % (AUTO) 84.4 % (42-75); PLATELET COUNT 531 X10'3 (140-440); RED BLOOD COUNT 3.55 X10'6 (4.70-6.10); RED CELL DISTRIBUTION WIDTH 22.3 % (11.5-14.5); WHITE BLOOD COUNT 19.3 X10'3 (4.5-11.0)
--- NOTE | 2021-03-21 06:35 | NUR ---
Problems reprioritized. Patient report given, questions answered & plan of care reviewed with EFREN De Jesus. .
--- NOTE | 2021-03-21 06:35 | NUR ---
Patient in room ARI 358. I have received report from EFREN Solomon and had the opportunity to ask questions and assume patient care.
[2021-03-21 06:37] LABS: ALANINE AMINOTRANSFERASE 34 U/L (12-78); ALBUMIN 1.9 G/DL (3.4-5.0); ALBUMIN/GLOBULIN RATIO 0.5 (1.1-1.5); ALKALINE PHOSPHATASE 88 IU/L (46-116); ANION GAP 8 (8-16); ASPARTATE AMINO TRANSFERASE 31 U/L (10-37); BILIRUBIN,TOTAL 0.2 MG/DL (0.1-1.0); BLOOD UREA NITROGEN 20 MG/DL (7-18); BUN/CREATININE RATIO 13.9 (5.4-32.0); CALCIUM 8.1 MG/DL (8.5-10.1); CHLORIDE 106 MMOL/L (99-107); CREATININE 1.44 MG/DL (0.60-1.10); GLUCOSE 96 MG/DL (70-104); MAGNESIUM 2.1 MG/DL (1.5-2.4); POTASSIUM 4.1 MMOL/L (3.5-5.1); SODIUM 144 MMOL/L (135-145); TOTAL CARBON DIOXIDE 30.1 MMOL/L (24-32); TOTAL PROTEIN 6.1 G/DL (6.4-8.2); eGFR 47 ML/MIN
[2021-03-21 06:59] LABS: PLATELET ESTIMATE INCREASED
[2021-03-21 07:02] LABS: ANISOCYTOSIS 3+; ELLIPTOCYTES 1+; HYPOCHROMASIA 1+; LARGE PLATELETS FEW; MICROCYTOSIS 2+; POLYCHROMASIA 1+
[2021-03-21 07:03] LABS: SCHISTOCYTES 1+
[2021-03-21] MEDS: donepezil 5mg tablet PO SCH (07:47)
[2021-03-21] MEDS: docusate sod 100mg capsule PO SCH (07:47)
[2021-03-21] MEDS: lactobacillus rhamnosus 10,000 MMU CELLS/CAPSULE PO SCH ×2 (07:47→20:09)
[2021-03-21] MEDS: chlorproMAZINE 25mg tablet PO SCH ×3 (07:47→20:09)
[2021-03-21] MEDS: oxybutynin 5mg tablet PO SCH ×2 (07:47→20:09)
[2021-03-21] MEDS: sertraline 50mg tablet PO SCH (07:48)
[2021-03-21] MEDS: ferrous gluconate 324mg tablet PO SCH ×3 (07:48→17:41)
[2021-03-21] MEDS: ascorbic acid 500mg tablet PO SCH ×3 (07:48→17:41)
[2021-03-21] MEDS: K and/or MAG REPLACEMENT MC SCH ×2 (08:00→20:00)
[2021-03-21] MEDS: HYDROcodone/acetaminophen 10/325mg tab PO PRN (08:02)
[2021-03-21] MEDS: lactose-reduced food (Ensure Enlive) - 237ml bottle PO SCH ×3 (08:12→18:37)
--- NOTE | 2021-03-21 08:17 | NUR ---
PAGER ID: [phone] MESSAGE: [id number]- Wade Melgar- critical H/H 7.0/22.2. 123/54, 97.7, 88, 16, 92-96% RA. Not feeling well. Sounding wheezy. ok for RT? - Neal [phone]
[2021-03-21] MEDS: NYSTATIN CREAM - 30GM TUBE TP SCH ×2 (09:24→20:11)
--- NOTE | 2021-03-21 12:00 | NUR ---
Patient lassiter catheter leaking. Lassiter catheter advanced and 3ml fluids inserted in balloon.
--- NOTE | 2021-03-21 18:53 | NUR ---
Student documentation: I have reviewed and agree with all interventions, assessments performed and documented by SN JUANJOSE. Student Medication Administration: For this medication-pass time frame, all medication were reviewed, dispensed, administered and documented per hospital policy by SN JUANJOSE.
--- NOTE | 2021-03-21 18:53 | NUR ---
Problems reprioritized. Patient report given, questions answered & plan of care reviewed with EFREN REEVES.
[2021-03-21] MEDS: tamsulosin 0.4mg capsule PO SCH (20:09)
[2021-03-22] VITALS: BP 115/65
[2021-03-22] MEDS: piperacillin/tazo 3.375gm/50ml 50 ML IV SCH ×2 (00:39→07:36)
[2021-03-22 02:54] LABS: CLARITY,URINE CLOUDY (Clear); COLOR,URINE YELLOW (Yellow); UA COLLECTION TYPE FOLEY CATH
[2021-03-22 02:55] LABS: GLUCOSE, URINE NEGATIVE (Neg); KETONES,URINE NEGATIVE (Neg); LEUKOCYTE ESTERASE ,URINE LARGE (Neg); NITRITES, URINE NEGATIVE (Neg); OCCULT BLOOD,URINE LARGE (Neg); PROTEIN,URINE 100 mg/dl (Neg); UROBILINOGEN,URINE 0.2 E.U/dL (0.2-1.0)
[2021-03-22 02:59] LABS: WBC,URINE TNTC /HPF (0-4)
[2021-03-22 03:00] LABS: BACTERIA,URINE 2+ /HPF (Neg); SQUAMOUS EPITHELIAL CELL,UR FEW /LPF (FEW); WBC CLUMPS,URINE FEW /HPF (NEGATIVE)
[2021-03-22] MEDS: HYDROcodone/acetaminophen 10/325mg tab PO PRN (05:33)
--- NOTE | 2021-03-22 06:18 | NUR ---
Problems reprioritized. Patient report given, questions answered & plan of care reviewed with EFREN De Jesus.
--- NOTE | 2021-03-22 06:41 | NUR ---
Patient in room ARI 358. I have received report from EFREN REEVES and had the opportunity to ask questions and assume patient care.
[2021-03-22 07:31] LABS: BASOPHILS # (AUTO) 0.1 X10'3 (0-0.2); BASOPHILS % (AUTO) 0.3 % (0-1); EOSINOPHILS # (AUTO) 0.4 X10'3 (0-0.9); EOSINOPHILS % (AUTO) 1.8 % (0-6); HEMOGLOBIN 8.7 g/dl (14.0-17.9); LYMPHOCYTES # (AUTO) 1.5 X10'3 (1.1-4.8); LYMPHOCYTES % (AUTO) 6.9 % (21-51); MEAN CORPUSCULAR HGB CONC 32.1 g/dL (33.0-36.5); MEAN CORPUSCULAR VOLUME 65.3 FL (78-98); MEAN PLATELET VOLUME 8.5 FL (7.4-10.4); MONOCYTES # (AUTO) 1.5 X10'3 (0-0.9); MONOCYTES % (AUTO) 6.8 % (2-12); NEUTROPHILS # (AUTO) 18.1 X10'3 (1.8-7.7); NEUTROPHILS % (AUTO) 84.2 % (42-75); PLATELET COUNT 595 X10'3 (140-440); RED BLOOD COUNT 4.14 X10'6 (4.70-6.10); RED CELL DISTRIBUTION WIDTH 26.8 % (11.5-14.5); WHITE BLOOD COUNT 21.5 X10'3 (4.5-11.0)
[2021-03-22] MEDS: oxybutynin 5mg tablet PO SCH (07:36)
[2021-03-22] MEDS: lactobacillus rhamnosus 10,000 MMU CELLS/CAPSULE PO SCH (07:37)
[2021-03-22] MEDS: sertraline 50mg tablet PO SCH (07:37)
[2021-03-22] MEDS: chlorproMAZINE 25mg tablet PO SCH ×2 (07:38→12:59)
[2021-03-22] MEDS: donepezil 5mg tablet PO SCH (07:38)
[2021-03-22] MEDS: metoprolol tartrate 12.5mg (1/2 tablet) PO SCH (07:54)
[2021-03-22 08:00] VITALS: BP 105/52
[2021-03-22] MEDS: K and/or MAG REPLACEMENT MC SCH (08:00)
[2021-03-22] MEDS: lactose-reduced food (Ensure Enlive) - 237ml bottle PO SCH ×2 (08:00→13:00)
[2021-03-22 08:29] LABS: ALANINE AMINOTRANSFERASE 26 U/L (12-78); ALBUMIN 1.9 G/DL (3.4-5.0); ALBUMIN/GLOBULIN RATIO 0.4 (1.1-1.5); ALKALINE PHOSPHATASE 89 IU/L (46-116); ANION GAP 7 (8-16); ASPARTATE AMINO TRANSFERASE 24 U/L (10-37); BILIRUBIN,TOTAL 0.4 MG/DL (0.1-1.0); BLOOD UREA NITROGEN 14 MG/DL (7-18); BUN/CREATININE RATIO 8.9 (5.4-32.0); CALCIUM 8.3 MG/DL (8.5-10.1); CHLORIDE 102 MMOL/L (99-107); CREATININE 1.57 MG/DL (0.60-1.10); GLUCOSE 84 MG/DL (70-104); MAGNESIUM 2.1 MG/DL (1.5-2.4); SODIUM 137 MMOL/L (135-145); TOTAL CARBON DIOXIDE 28.1 MMOL/L (24-32); TOTAL PROTEIN 6.4 G/DL (6.4-8.2); eGFR 43 ML/MIN
[2021-03-22 09:22] LABS: ANISOCYTOSIS 3+; MICROCYTOSIS 2+; PLATELET ESTIMATE INCREASED
[2021-03-22 09:23] LABS: ELLIPTOCYTES 1+; HYPOCHROMASIA 2+; LARGE PLATELETS FEW
[2021-03-22 09:24] LABS: SCHISTOCYTES FEW
--- NOTE | 2021-03-22 09:45 | NUR ---
Reassessment: Pt placed on MM5 diet 03/19 though has had mostly 0-25% intake of meals; also consuming avg 50% x 5 ONS. Pt noted to be A&O x 1, w/ minimal assist w/ meals. Pt may benefit from appetite stimulant per MD discretion. LBM 03/21 w/ PRN bowel care available. Pt also w/ D5 at 60ml/hr providing 245kcals. Will continue to monitor. Recommendations: 1) Continue regular diet; assist w/ meals 2) Ensure Enlive TIDWM 3) Tino WB, jimbo MARRERO 4) Encourage PO intake of meals and ONS; monitor need for meal assistance 5) Appetite stimulant per MD discretion 6) Continue iron replacement for iron deficiency anemia per MD 7) Routine bowel care 8) Weekly scaled weights Addendum: 03/22/21 at [address] Amended: Links added.
[2021-03-22] MEDS: ascorbic acid 500mg tablet PO SCH ×2 (09:57→12:59)
[2021-03-22] MEDS: ferrous gluconate 324mg tablet PO SCH ×2 (09:57→12:59)
[2021-03-22] MEDS: NYSTATIN CREAM - 30GM TUBE TP SCH (09:58)
[2021-03-22 11:26] VITALS: BP 111/52
[2021-03-22] MEDS: dextrose 5%-water 1,000 ML IV SCH (13:00)
--- NOTE | 2021-03-22 14:24 | NUR ---
PAGER ID: [phone] MESSAGE: [id number]- Wade Melgar- need discharge order. spring asking if you can write a triplicate or escript pain meds to [facility]. Thank you- Neal [phone]
--- NOTE | 2021-03-22 14:24 | NUR ---
Called report to [facility] Maggy Ahumada.
--- NOTE | 2021-03-22 14:40 | NUR ---
Patient dc'd with [facility] cargo to [place] with all personal belongings.
== END 2021-03-22 14:40 | disposition home health service (06) | DRG 871 ==
LOC: ER 21:11 → ED HOLD 03-12 02:48 → CANBEDREQ 03-12 06:42 → SUR 3N 03-12 16:30
PROVIDERS: ADMIT Internal Medicine; ATTEND Family Medicine
PROC: 30233N1 Transfusion of Nonautologous Red Blood Cells into Peripheral Vein, Percutaneous Approach (ICD-10-PCS; principal; 2021-03-13)
PROC: 0T2BX0Z Change Drainage Device in Bladder, External Approach (ICD-10-PCS; 2021-03-20)
DX: A41.51 Sepsis due to Escherichia coli [E. coli] (principal); J18.9 Pneumonia, unspecified organism; N17.0 Acute kidney failure with tubular necrosis; N13.6 Pyonephrosis; J90 Pleural effusion, not elsewhere classified; D50.9 Iron deficiency anemia, unspecified; G30.9 Alzheimer's disease, unspecified; E78.00 Pure hypercholesterolemia, unspecified; F02.80 Dementia in other diseases classified elsewhere, unspecified severity, without behavioral disturbance, psychotic disturbance, mood disturbance, and anxiety; N32.0 Bladder-neck obstruction; R06.6 Hiccough; R19.7 Diarrhea, unspecified; I12.9 Hypertensive chronic kidney disease with stage 1 through stage 4 chronic kidney disease, or unspecified chronic kidney disease; N18.9 Chronic kidney disease, unspecified; Z20.822 Contact with and (suspected) exposure to COVID-19; Z66 Do not resuscitate; Z79.02 Long term (current) use of antithrombotics/antiplatelets; Z86.73 Personal history of transient ischemic attack (TIA), and cerebral infarction without residual deficits; Z87.891 Personal history of nicotine dependence; Z79.899 Other long term (current) drug therapy
CPT/HCPCS: 36415; 36430; 71045; 71250; 74176; 76870; 80053; 81001; 82272; 82378; 82948; 83540; 83550; 83605; 83735; 84132; 84145; 85007; 85008; 85025; 86885; 86900; 86901; 86920; 87040; 87077; 87081; 87088; 87186; 87635; 93005; 93976; 94668; 97110; 97116; 97161; 97530; 99285; C9803; G0378; J0456; J0696; J1940; J1956; J2543; J3370; J7030; J7070; P9016; Q0161

== ENCOUNTER 2021-07-02 18:01 | Inpatient (IN) | payer MEDICARE, BC ==
[~2021-07-02] VITALS: Ht 172.7 cm; Wt 72.7 kg
[~2021-07-02 18:01] MED LIST changes: +AMLO10TA13 PO; -ASPI-1264 PO; +CHLO25TA22 PO; +CLOP75TA34 PO; -COR3.125T PO; +DONE10TA44 PO; +FURO20TA4 PO; +PANT40TA54 PO; +POTA8TAB58 PO
[2021-07-02 19:05] LABS: BASOPHILS % (AUTO) 0.2 % (0-1); EOSINOPHILS % (AUTO) 0.3 % (0-6); HEMATOCRIT 37.9 % (42.0-52.0); LYMPHOCYTES # (AUTO) 0.8 X10'3 (1.1-4.8); LYMPHOCYTES % (AUTO) 4.8 % (21-51); MEAN CORPUSCULAR HEMOGLOBIN 23.8 PG (27.0-31.0); MEAN CORPUSCULAR HGB CONC 31.8 g/dL (33.0-36.5); MEAN CORPUSCULAR VOLUME 74.9 FL (78-98); MEAN PLATELET VOLUME 8.2 FL (7.4-10.4); MONOCYTES # (AUTO) 0.8 X10'3 (0-0.9); NEUTROPHILS # (AUTO) 14.2 X10'3 (1.8-7.7); NEUTROPHILS % (AUTO) 89.7 % (42-75); PLATELET COUNT 248 X10'3 (140-440); RED BLOOD COUNT 5.06 X10'6 (4.70-6.10); WHITE BLOOD COUNT 15.8 X10'3 (4.5-11.0)
[2021-07-02 19:14] LABS: ALANINE AMINOTRANSFERASE 24 U/L (12-78); ALBUMIN 3.1 G/DL (3.4-5.0); ALBUMIN/GLOBULIN RATIO 0.7 (1.1-1.5); ALKALINE PHOSPHATASE 111 IU/L (46-116); ANION GAP 8 (8-16); ASPARTATE AMINO TRANSFERASE 19 U/L (10-37); BILIRUBIN,TOTAL 0.2 MG/DL (0.1-1.0); BLOOD UREA NITROGEN 22 MG/DL (7-18); BUN/CREATININE RATIO 14.2 (5.4-32.0); CHLORIDE 105 MMOL/L (99-107); CREATININE 1.55 MG/DL (0.60-1.10); GLUCOSE 126 MG/DL (70-104); POTASSIUM 4.8 MMOL/L (3.5-5.1); SODIUM 139 MMOL/L (135-145); TOTAL CARBON DIOXIDE 26.1 MMOL/L (24-32); TOTAL PROTEIN 7.8 G/DL (6.4-8.2); eGFR 43 ML/MIN
--- NOTE | 2021-07-02 19:59 | NUR ---
CALLED AND TALKED TO POChad LU WHO CONSULTED WITH SON AND AGGIRRED LET NATURE TAKE ITS CORSE AND CONTINUE HOSPICE AND NOT AGGRESSIVELY TREAT PTS HEAD BLEED
[2021-07-02] MEDS ORDERED: tranexamic acid 1gm/0.7% sal. 100 ML IV ONE (20:00)
[2021-07-02] MEDS ORDERED: normal saline 1000ML IV soln IVB ONE (20:15)
[2021-07-02] MEDS ORDERED: normal saline 1000ml 1,000 ML IV ONE (20:15)
[2021-07-02] MEDS ORDERED: morphine 4 MG/ML inj SYRINge IV ONE (20:40)
--- NOTE | 2021-07-02 20:44 | NUR ---
CALLED NEFTALI KHAN AT 20:44. ETA 30 MINS
[2021-07-02 20:55] LABS: CLARITY,URINE CLEAR (Clear); COLOR,URINE YELLOW (Yellow); GLUCOSE, URINE NEGATIVE (Neg); KETONES,URINE NEGATIVE (Neg); LEUKOCYTE ESTERASE ,URINE NEGATIVE (Neg); NITRITES, URINE NEGATIVE (Neg); OCCULT BLOOD,URINE TRACE-INTACT (Neg); PROTEIN,URINE TRACE mg/dl (Neg); UROBILINOGEN,URINE 0.2 E.U/dL (0.2-1.0)
[2021-07-02] MEDS ORDERED: ondansetron/PF 4mg/2ml inj IV PRN (21:00)
[2021-07-02] MEDS ORDERED: acetaminophen 325mg tablet PO PRN (21:00)
[2021-07-02] MEDS ORDERED: morphine 2 MG/ML inj. syringe IV PRN ×2 (21:00)
[2021-07-02] MEDS ORDERED: normal saline 1000ml 1,000 ML IV SCH (21:00)
[2021-07-02 21:02] LABS: BACTERIA,URINE NONE SEEN /HPF (Neg); SQUAMOUS EPITHELIAL CELL,UR FEW /LPF (FEW); UA COLLECTION TYPE STRAIGHT CATH
[2021-07-02] MEDS ORDERED: CefTRIAXone/D5W-Rocephin 1gm 50 ML IV ONE (21:05)
[2021-07-02 21:07] LABS: ANISOCYTOSIS 2+; MICROCYTOSIS 1+; PLATELET ESTIMATE NORMAL
[2021-07-02 21:08] LABS: ELLIPTOCYTES FEW
--- NOTE | 2021-07-02 21:08 | NUR ---
ORTHO TECK SHOWED UP AT 21:09
[2021-07-02] MEDS ORDERED: OXYB5TAB16 PO (21:47)
[2021-07-02] MEDS ORDERED: LOP12.5T PO (21:47)
[2021-07-02] MEDS ORDERED: FERR325T28 PO (21:47)
[2021-07-02] MEDS ORDERED: HYDR-3686 PO (21:47)
[2021-07-02] MEDS ORDERED: FLO0.4C PO (21:47)
[2021-07-02] MEDS ORDERED: HALO2TAB PO (21:47)
[2021-07-02] MEDS ORDERED: HYOS-27 PO (22:11)
[2021-07-02] MEDS ORDERED: FERR324T PO (22:11)
[2021-07-02] MEDS ORDERED: DIPH-735 PO (22:11)
[2021-07-02] MEDS ORDERED: LORA-268 PO (22:11)
[2021-07-02] MEDS ORDERED: HALO1TAB PO (22:11)
[2021-07-02] MEDS ORDERED: LORazepam 0.5 MG tablet PO PRN (23:35)
[2021-07-03] VITALS: BP 128/67
[2021-07-03] MEDS: LIDOcaine 5% patch TP SCH ×2 (00:30→08:00)
--- NOTE | 2021-07-03 05:24 | NUR ---
0500 pt incontinent of urine . performed bladder scan 88ml urine seen
--- NOTE | 2021-07-03 06:34 | NUR ---
Patient in room ARI 358. I have received report and had the opportunity to ask questions and assume patient care.
[2021-07-03] MEDS ORDERED: pantoprazole 40mg Tablet.DR PO SCH (08:00)
[2021-07-03] MEDS ORDERED: tamsulosin 0.4mg capsule PO SCH (08:00)
[2021-07-03] MEDS ORDERED: sertraline 50mg tablet PO SCH (08:00)
[2021-07-03] MEDS ORDERED: CefTRIAXone/D5W-Rocephin 1gm 50 ML IV SCH (08:00)
[2021-07-03] MEDS ORDERED: metoprolol tartrate 12.5mg (1/2 tablet) PO SCH (08:00)
[2021-07-03] MEDS ORDERED: furosemide 20MG tablet PO SCH (08:00)
[2021-07-03] MEDS ORDERED: amLODIPine 5mg tablet PO SCH (08:00)
[2021-07-03] MEDS ORDERED: LORazepam 2 mg/ml vial IV PRN (10:05)
[2021-07-03] MEDS ORDERED: morphine 10mg/ml inj. IV PRN (10:05)
[2021-07-03] MEDS: morphine 10mg/0.5ml (conc. morphine) oral syringe PO PRN ×3 (13:45→22:42)
--- NOTE | 2021-07-03 14:11 | NUR ---
Student documentation: I have reviewed all interventions, assessments performed and documented by Debbie JULES. Student Medication Administration: For all medication-pass' in the time frame of 3604-6936, all medications were reviewed, dispensed, administered and documented per hospital policy by Debbie JULES.
--- NOTE | 2021-07-03 18:12 | NUR ---
Problems reprioritized. Patient report given, questions answered & plan of care reviewed with MO SCHWARTZ. .
[2021-07-03 19:00] VITALS: BP 106/64
[2021-07-04] MEDS: LIDOcaine 5% patch TP SCH (08:00)
[2021-07-04] MEDS: morphine 10mg/0.5ml (conc. morphine) oral syringe PO PRN ×3 (09:36→14:01)
--- NOTE | 2021-07-04 13:42 | NUR ---
Spoke to Dr Elizondo regarding patients lassiter was Dc'd per his orders. Does Dr Elizondo want patient to stay until he voids. Per Narda SCHWARTZ that removed patients lassiter patient does not have any edema at this time. Patient states he does not normally have any difficulty voiding. Per Dr Elizondo ok to sent patient home. I discussed with patient and his at bedside, if patient has any difficulty urinating he can contact his primary Doctor or return to the Er.
--- NOTE | 2021-07-04 14:36 | NUR ---
Patient discharged with [facility] transport back to [place]. Pain medication given on discharge for the transport home.
== END 2021-07-04 14:28 | disposition hospice, home (50) | DRG 83 ==
LOC: ER 18:02 → ED HOLD 21:03 → SUR 3N 23:17
PROVIDERS: ADMIT Internal Medicine; ATTEND Family Medicine
PROC: 2W3DX1Z Immobilization of Left Lower Arm using Splint (ICD-10-PCS; principal; 2021-07-02)
DX: S06.6X9A Traumatic subarachnoid hemorrhage with loss of consciousness of unspecified duration, initial encounter (principal); S52.502A Unspecified fracture of the lower end of left radius, initial encounter for closed fracture; J90 Pleural effusion, not elsewhere classified; Z20.822 Contact with and (suspected) exposure to COVID-19; D72.829 Elevated white blood cell count, unspecified; S02.19XA Other fracture of base of skull, initial encounter for closed fracture; S02.842A Fracture of lateral orbital wall, left side, initial encounter for closed fracture; E78.00 Pure hypercholesterolemia, unspecified; W18.39XA Other fall on same level, initial encounter; Z66 Do not resuscitate; G30.9 Alzheimer's disease, unspecified; F02.80 Dementia in other diseases classified elsewhere, unspecified severity, without behavioral disturbance, psychotic disturbance, mood disturbance, and anxiety; I10 Essential (primary) hypertension; S20.212A Contusion of left front wall of thorax, initial encounter; Z51.5 Encounter for palliative care; Z79.02 Long term (current) use of antithrombotics/antiplatelets; Z86.73 Personal history of transient ischemic attack (TIA), and cerebral infarction without residual deficits; Z98.41 Cataract extraction status, right eye; Y93.89 Activity, other specified; Y92.098 Other place in other non-institutional residence as the place of occurrence of the external cause; Y99.8 Other external cause status; Z79.899 Other long term (current) drug therapy
CPT/HCPCS: 29125; 36415; 70450; 71045; 72125; 73100; 80053; 81001; 83735; 83880; 84484; 85008; 85025; 87081; 87088; 87635; 93005; 96365; 99291; G0378; J0696; J2060; J2270; J2274; J3490; J7030